=== PATIENT | female | born 1955 | race Caucasian/White ===

== ENCOUNTER 2018-01-11 14:05 | Inpatient (IN) | payer SELFPAY ==
[2018-01-11] VITALS (8 sets, daily range): BP systolic 170–200; BP diastolic 88–102; PULSE 56–73; RESP 17–20; TEMP 98–98.7; O2SAT 95–98
[~2018-01-11] VITALS: Ht 152.4 cm; Wt 80.0 kg
--- NOTE | 2018-01-11 14:26 | PD ---
HPI Chief Complaint: Fall Time Seen by Provider: 14:16 Travel History International Travel<30 days: No Contact w/Intl Traveler<30days: No Traveled to known affect area: No History of Present Illness HPI Patient is a 62-year-old female presents emergency department after an apparent syncopal episode. Patient states she went to get the mail and then she noticed that her right hand was cramping and she thought it was just from the cane that she uses to walk. The next thing she knew she woke up on the ground with somebody poking her in the chest trying to wake her up. EMS reported that this person was actually a casting house worker who had been called by security that was passing by in her neighborhood. They had to sternal rub her to arouse her. The patient states that she is only having pain in her low back. Denies any chest pain shortness of breath abdominal pain nausea vomiting. She is unsure as to whether or not she blacked out. Symptoms are moderate, started just prior to arrival, associated signs symptoms in context as above PFSH Past Medical History Musculoskeletal: Yes Tetanus Vaccination: < 5 Years ?: Not Tubal Ligation: Yes Social History Alcohol Use: No Tobacco Use: Yes Substance Use: No Allergies-Medications (Allergen,Severity, Reaction): Coded Allergies: No Known Allergies (Unverified , 01/11/18) Reported Meds & Prescriptions Reported Meds & Active Scripts Active No Active Prescriptions or Reported Medications Review of Systems Except as stated in HPI: all other systems reviewed are Neg Physical Exam Narrative GENERAL: Well-developed well-nourished, no obvious distress. Small abrasion on the forehead. Small abrasion on lower extremity SKIN: Focused skin assessment warm/dry. HEAD: Atraumatic. Normocephalic. EYES: Pupils equal and round. No scleral icterus. No injection or drainage. ENT: No nasal bleeding or discharge. Mucous membranes pink and moist. NECK: Trachea midline. No JVD. CARDIOVASCULAR: Regular rate and rhythm. No murmur appreciated. RESPIRATORY: No accessory muscle use. Clear to auscultation. Breath sounds equal bilaterally. GASTROINTESTINAL: Abdomen soft, non-tender, nondistended. Hepatic and splenic margins not palpable. MUSCULOSKELETAL: No obvious deformities. No clubbing. No cyanosis. No edema. No gross deformities, 2+ bilateral pulses in all 4 extremities per NEUROLOGICAL: Awake and alert. Cranial nerves II through XII grossly intact and nonfocal, 5 out of 5 strength in all 4 extremities. PSYCHIATRIC: Appropriate mood and affect; insight and judgment normal. Data Data Last Documented VS Vital Signs Date Time Temp Pulse Resp B/P (MAP) Pulse Ox O2 Delivery O2 Flow Rate FiO2 01/11/18 17:06 59 200/92 (128) 01/11/18 14:21 18 98 01/11/18 14:16 98.7 Orders Orders Electrocardiogram (01/11/18 14:16) Complete Blood Count With Diff (01/11/18 14:16) Comprehensive Metabolic Panel (01/11/18 14:16) B-Type Natriuretic Peptide (01/11/18 14:16) Ckmb (Isoenzyme) Profile (01/11/18 14:16) Troponin I (01/11/18 14:16) Act Partial Throm Time (Ptt) (01/11/18 14:16) Prothrombin Time / Inr (Pt) (01/11/18 14:16) Urinalysis - C+S If Indicated (01/11/18 14:16) Chest, Single Ap (01/11/18 14:16) Ct Brain W/O Iv Contrast(Rout) (01/11/18 14:16) Ct Cerv Spine W/O Contrast (01/11/18 14:16) Ecg Monitoring (01/11/18 14:16) Iv Access Insert/Monitor (01/11/18 14:16) Oximetry (01/11/18 14:16) Ct Lumb Spine W/O Contrast (01/11/18 ) Pelvis, Ap Only (Routine) (01/11/18 ) Tramadol (Ultram) (01/11/18 17:30) Ondansetron Odt (Zofran Odt) (01/11/18 17:30) Clonidine (Catapres) (01/11/18 17:30) Type And Screen (01/11/18 17:55) Red Blood Cells (Rbc) (01/11/18 17:55) Blood Product Administration (01/11/18 17:55) Sodium Chlor 0.9% 250 Ml Inj (Ns 250 Ml (01/11/18 18:00) Admit Order (Ed Use Only) (01/11/18 18:36) Labs Laboratory Tests Test 01/11/18 14:30 01/11/18 14:40 01/11/18 16:40 Blood Urea Nitrogen 8 MG/DL Creatinine 0.91 MG/DL Random Glucose 94 MG/DL Total Protein 7.7 GM/DL Albumin 3.6 GM/DL Calcium Level 9.1 MG/DL Alkaline Phosphatase 78 U/L Aspartate Amino Transf (AST/SGOT) 10 U/L Alanine Aminotransferase (ALT/SGPT) 20 U/L Total Bilirubin 0.3 MG/DL Sodium Level 142 MEQ/L Potassium Level 3.8 MEQ/L Chloride Level 105 MEQ/L Carbon Dioxide Level 29.8 MEQ/L Anion Gap 7 MEQ/L Estimat Glomerular Filtration Rate 63 ML/MIN Total Creatine Kinase 66 U/L Troponin I LESS THAN 0.02 NG/ML B-Type Natriuretic Peptide 18 PG/ML Prothrombin Time 10.5 SEC Prothromb Time International Ratio 1.0 RATIO Activated Partial Thromboplast Time 27.1 SEC White Blood Count 3.6 TH/MM3 Red Blood Count 2.44 MIL/MM3 Hemoglobin 7.7 GM/DL Hematocrit 23.7 % Mean Corpuscular Volume 96.8 FL Mean Corpuscular Hemoglobin 31.4 PG Mean Corpuscular Hemoglobin Concent 32.4 % Red Cell Distribution Width 13.8 % Platelet Count 115 TH/MM3 Mean Platelet Volume 9.2 FL Neutrophils (%) (Auto) 78.3 % Lymphocytes (%) (Auto) 14.4 % Monocytes (%) (Auto) 4.8 % Eosinophils (%) (Auto) 0.7 % Basophils (%) (Auto) 1.8 % Neutrophils # (Auto) 2.8 TH/MM3 Lymphocytes # (Auto) 0.5 TH/MM3 Monocytes # (Auto) 0.2 TH/MM3 Eosinophils # (Auto) 0.0 TH/MM3 Basophils # (Auto) 0.1 TH/MM3 CBC Comment AUTO DIFF Differential Comment AUTO DIFF CONFIRMED Platelet Estimate LOW Platelet Morphology Comment NORMAL MDM Medical Decision Making Medical Screen Exam Complete: Yes Emergency Medical Condition: Yes Differential Diagnosis Syncope, anemia, palpitations, ACS, MD, electrolyte abnormality, dehydration. Narrative Course Patient was discussed with Dr. Fernando at 1700 shift change to follow-up labs and disposition appropriately. Scripts No Active Prescriptions or Reported Meds Dudley Hung MD Jan 11, 2018 14:25
--- NOTE | 2018-01-11 14:57 | RADRPT ---
EXAM DATE/TIME: 01/11/2018 14:45 [facility] COMPARISON: No previous studies available for comparison. INDICATIONS : Weakness. Syncopal episode today. MEDICAL HISTORY : None. SURGICAL HISTORY : None. ENCOUNTER: Initial ACUITY: 1 day PAIN SCORE: 5/10 LOCATION: Bilateral chest FINDINGS: A single view of the chest demonstrates the lungs to be symmetrically aerated without evidence of mas s, infiltrate or effusion. The cardiomediastinal contours are unremarkable. Osseous structures are intact. CONCLUSION: No acute disease. Fer Allen MD on January 11, 2018 at 14:55 Board Certified Radiologist. This report was verified electronically.
--- NOTE | 2018-01-11 15:04 | RADRPT ---
EXAM DATE/TIME: 01/11/2018 14:49 [facility] COMPARISON: No previous studies available for comparison. INDICATIONS : Fall, cephalgia. RADIATION DOSE: 56.35 CTDIvol (mGy) MEDICAL HISTORY : None SURGICAL HISTORY : Tubal ligation. ENCOUNTER: Initial ACUITY: 1 day PAIN SCALE: 3/10 LOCATION: Bilateral cranial TECHNIQUE: Multiple contiguous axial images were obtained of the head. Using automated exposure control and adj ustment of the mA and/or kV according to patient size, radiation dose was kept as low as reasonably a chievable to obtain optimal diagnostic quality images. DICOM format image data is available electro nically for review and comparison. FINDINGS: CEREBRUM: The ventricles are normal for age. No evidence of midline shift, mass lesion, hemorrhage or acute in farction. No extra-axial fluid collections are seen. Mild periventricular and subcortical white elier er small vessel ischemic changes are noted bilaterally. Old lacunar infarct is noted within the right armas radiata. POSTERIOR FOSSA: The cerebellum and brainstem are intact. The 4th ventricle is midline. The cerebellopontine angle i s unremarkable. EXTRACRANIAL: The visualized portion of the orbits is intact. SKULL: The calvaria is intact. No evidence of skull fracture. CONCLUSION: 1. No acute infarct, acute hemorrhage, midline shift or extra-axial fluid collections. 2. Mild periventricular and subcortical white matter small vessel ischemic changes bilaterally. 3. Old lacunar infarct within the right armas radiata. Dudley Arevalo MD on January 11, 2018 at 15:01 Board Certified Radiologist. This report was verified electronically.
[2018-01-11 15:25] LABS: ALBUMIN 3.6 GM/DL (3.4-5.0); AST (GOT) 10 U/L (15-37); BICARBONATE 29.8 MEQ/L (21.0-32.0); BLOOD UREA NITROGEN 8 MG/DL (7-18); CALCIUM 9.1 MG/DL (8.5-10.1); CHLORIDE 105 MEQ/L (98-107); CREATININE 0.91 MG/DL (0.50-1.00); GLOMERULAR FILTRATION RATE 63 ML/MIN (>89); GLUCOSE,RANDOM 94 MG/DL (74-106); SODIUM (NA) 142 MEQ/L (136-145)
[2018-01-11 15:26] LABS: PROTHROMBIN TIME - PATIENT 10.5 SEC (9.8-11.6)
[2018-01-11 15:29] LABS: ALKALINE PHOSPHATASE 78 U/L (45-117); ALT (GPT) 20 U/L (10-53); TOTAL BILIRUBIN ADULT 0.3 MG/DL (0.2-1.0); TOTAL PROTEIN 7.7 GM/DL (6.4-8.2); TROPONIN I LESS THAN 0.02 NG/ML (0.02-0.05)
--- NOTE | 2018-01-11 15:44 | RADRPT ---
EXAM DATE/TIME: 01/11/2018 14:43 [facility] COMPARISON: No previous studies available for comparison. INDICATIONS : Pelvic pain. Syncopal episode today. Patient fell. MEDICAL HISTORY : None. SURGICAL HISTORY : None. ENCOUNTER: Initial ACUITY: 1 day PAIN SCORE: 5/10 LOCATION: Pelvis. FINDINGS: No acute fracture or dislocations. Degenerative changes are noted within the lower lumbar spine. CONCLUSION: No acute fracture or dislocation. Degenerative changes involving the lower lumbar spi ne. Dudley Arevalo MD on January 11, 2018 at 15:42 Board Certified Radiologist. This report was verified electronically.
--- NOTE | 2018-01-11 16:29 | RADRPT ---
EXAM DATE/TIME: 01/11/2018 14:59 [facility] COMPARISON: No previous studies available for comparison. INDICATIONS : Fall, lower back pain. RADIATION DOSE: 32.82 CTDIvol (mGy) MEDICAL HISTORY : None SURGICAL HISTORY : Tubal ligation. ENCOUNTER: Initial ACUITY: 1 day PAIN SCALE: 6/10 LOCATION: lower back TECHNIQUE: Volumetric scanning of the lumbar spine was performed. Multiplanar reconstructions in the sagittal, coronal and oblique axial planes were performed. Using automated exposure control and adjustment of the mA and/or kV according to patient size, radiation dose was kept as low as reasonably achievable t o obtain optimal diagnostic quality images. DICOM format image data is available electronically for review and comparison. FINDINGS: Transitional anatomy is identified. There is sacralization of the fifth nonrib-bearing vertebral sokaogon ents. There is no evidence of fracture or destructive change. There is severe degenerative arthritic change with disc space narrowing at all visualized levels. Severe posterior facet arthropathy is pres ent in the lumbar spine. There are mild annular disc bulges at multiple levels. Moderate concentric c anal stenosis most significantly at what I believe is L4-5 and moderate to moderately severe foramina l stenosis at L5-S1. There is no evidence of paraspinal hematoma. CONCLUSION: No evidence of acute bony injury in the lumbar spine Fer Allen MD on January 11, 2018 at 16:21 Board Certified Radiologist. This report was verified electronically.
--- NOTE | 2018-01-11 16:51 | RADRPT ---
EXAM DATE/TIME: 01/11/2018 14:49 [facility] COMPARISON: No previous studies available for comparison. INDICATIONS : Fall, neck pain. RADIATION DOSE: 23.94 CTDIvol (mGy) MEDICAL HISTORY : None SURGICAL HISTORY : Tubal ligation. ENCOUNTER: Initial ACUITY: 1 day PAIN SCALE: 6/10 LOCATION: neck TECHNIQUE: Volumetric scanning of the cervical spine was performed. Multiplanar reconstructions in the sagittal, coronal and oblique axial planes were performed. Using automated exposure control and adjustment o f the mA and/or kV according to patient size, radiation dose was kept as low as reasonably achievable to obtain optimal diagnostic quality images. DICOM format image data is available electronically f or review and comparison. FINDINGS: Thin section axial imaging of the cervical spine was performed. Sagittal and coronal imaging demonstrate adequate alignment of the vertebral bodies. There are degene rative changes at C4/5, C5/6 and C6/7. C1/2: No acute bony abnormality identified. C2/3: The thecal space is adequate. The neural foramina are adequate. No significant abnormality is identif ied. C3/4: The thecal space is adequate. The neural foramina are adequate. No significant abnormality is identif ied. C4/5: There is a degenerated disc. There is mild loss of the ridging from the vertebral endplates. There is uncal vertebral osteophyte projecting into the lateral recess and base of the foramina on the left. The foramina on the right is adequate. There is mild facet arthritis bilaterally. C5/6: There is a degenerated disc with a small broad-based disc bulge. There is mild osteophytic ridging fr om the vertebral endplates. The residual thecal space and foramina appear adequate. C6/7: There is a degenerated disc. There is minimal osteophytic ridging. There is minimal disc bulge. The t hecal space and foramina are adequate. There is mild facet arthritis bilaterally. C7/T1: The thecal space is adequate. The neural foramina are adequate. No significant abnormality is identif ied. CONCLUSION: 1. Degenerative changes at C4/5, C5/6 and C6/7. No acute fracture or destructive lesion identified. Ki Mao MD on January 11, 2018 at 16:47 Board Certified Radiologist. This report was verified electronically.
--- NOTE | 2018-01-11 17:24 | PD ---
Physical Exam Narrative GENERAL: elderly pale female, in no acute distress presently. SKIN: Warm and dry. HEAD: Atraumatic. Normocephalic. EYES: Pupils equal and round. No scleral icterus. No injection or drainage. ENT: No nasal bleeding or discharge. Mucous membranes pink and moist. NECK: Trachea midline. No JVD. CARDIOVASCULAR: Regular rate and rhythm. RESPIRATORY: No accessory muscle use. Clear to auscultation. Breath sounds equal bilaterally. GASTROINTESTINAL: Abdomen soft, non-tender, nondistended. Hepatic and splenic margins not palpable. MUSCULOSKELETAL: Extremities without clubbing, cyanosis, or edema. No obvious deformities. NEUROLOGICAL: Awake and alert. No obvious cranial nerve deficits. Motor grossly within normal limits. Five out of 5 muscle strength in the arms and legs. Normal speech. PSYCHIATRIC: Appropriate mood and affect; insight and judgment normal. Data Data Last Documented VS Vital Signs Date Time Temp Pulse Resp B/P (MAP) Pulse Ox O2 Delivery O2 Flow Rate FiO2 01/11/18 17:06 59 200/92 (128) 01/11/18 14:21 18 98 01/11/18 14:16 98.7 Orders Orders Electrocardiogram (01/11/18 14:16) Complete Blood Count With Diff (01/11/18 14:16) Comprehensive Metabolic Panel (01/11/18 14:16) B-Type Natriuretic Peptide (01/11/18 14:16) Ckmb (Isoenzyme) Profile (01/11/18 14:16) Troponin I (01/11/18 14:16) Act Partial Throm Time (Ptt) (01/11/18 14:16) Prothrombin Time / Inr (Pt) (01/11/18 14:16) Urinalysis - C+S If Indicated (01/11/18 14:16) Chest, Single Ap (01/11/18 14:16) Ct Brain W/O Iv Contrast(Rout) (01/11/18 14:16) Ct Cerv Spine W/O Contrast (01/11/18 14:16) Ecg Monitoring (01/11/18 14:16) Iv Access Insert/Monitor (01/11/18 14:16) Oximetry (01/11/18 14:16) Ct Lumb Spine W/O Contrast (01/11/18 ) Pelvis, Ap Only (Routine) (01/11/18 ) Tramadol (Ultram) (01/11/18 17:30) Ondansetron Odt (Zofran Odt) (01/11/18 17:30) Clonidine (Catapres) (01/11/18 17:30) Type And Screen (01/11/18 17:55) Red Blood Cells (Rbc) (01/11/18 17:55) Blood Product Administration (01/11/18 17:55) Sodium Chlor 0.9% 250 Ml Inj (Ns 250 Ml (01/11/18 18:00) Labs Laboratory Tests Test 01/11/18 14:30 01/11/18 14:40 01/11/18 16:40 Blood Urea Nitrogen 8 MG/DL Creatinine 0.91 MG/DL Random Glucose 94 MG/DL Total Protein 7.7 GM/DL Albumin 3.6 GM/DL Calcium Level 9.1 MG/DL Alkaline Phosphatase 78 U/L Aspartate Amino Transf (AST/SGOT) 10 U/L Alanine Aminotransferase (ALT/SGPT) 20 U/L Total Bilirubin 0.3 MG/DL Sodium Level 142 MEQ/L Potassium Level 3.8 MEQ/L Chloride Level 105 MEQ/L Carbon Dioxide Level 29.8 MEQ/L Anion Gap 7 MEQ/L Estimat Glomerular Filtration Rate 63 ML/MIN Total Creatine Kinase 66 U/L Troponin I LESS THAN 0.02 NG/ML B-Type Natriuretic Peptide 18 PG/ML Prothrombin Time 10.5 SEC Prothromb Time International Ratio 1.0 RATIO Activated Partial Thromboplast Time 27.1 SEC White Blood Count 3.6 TH/MM3 Red Blood Count 2.44 MIL/MM3 Hemoglobin 7.7 GM/DL Hematocrit 23.7 % Mean Corpuscular Volume 96.8 FL Mean Corpuscular Hemoglobin 31.4 PG Mean Corpuscular Hemoglobin Concent 32.4 % Red Cell Distribution Width 13.8 % Platelet Count 115 TH/MM3 Mean Platelet Volume 9.2 FL Neutrophils (%) (Auto) 78.3 % Lymphocytes (%) (Auto) 14.4 % Monocytes (%) (Auto) 4.8 % Eosinophils (%) (Auto) 0.7 % Basophils (%) (Auto) 1.8 % Neutrophils # (Auto) 2.8 TH/MM3 Lymphocytes # (Auto) 0.5 TH/MM3 Monocytes # (Auto) 0.2 TH/MM3 Eosinophils # (Auto) 0.0 TH/MM3 Basophils # (Auto) 0.1 TH/MM3 CBC Comment AUTO DIFF MDM Medical Record Reviewed: Yes Supervised Visit with PATTIE: No Narrative Course cbc h/h = 7.7/24...wbc 3.6, platelet count 115 normal coagulation profile normal electrolytes, normal liver/kidney functions, negative cardiac enzymes and normal bnp ct head read as : no acute infarct/acute hemorrhage, midline shift or extra axial fluid collections...old lacunar infarct within armas radiata cervical CT: Degenerative changes at C4/5, C5/6 and C6/7. No acute fracture or destructive lesion identified. chest xray read by radiologist as: No acute disease. lumbar spine read by radiologist as : FINDINGS: Transitional anatomy is identified. There is sacralization of the fifth nonrib- bearing vertebral elements. There is no evidence of fracture or destructive change. There is severe degenerative arthritic change with disc space narrowing at all visualized levels. Severe posterior facet arthropathy is present in the lumbar spine. There are mild annular disc bulges at multiple levels. Moderate concentric canal stenosis most significantly at what I believe is L4-5 and moderate to moderately severe foraminal stenosis at L5-S1. There is no evidence of paraspinal hematoma. pelvis xray read by radiologist as : No acute fracture or dislocation. Degenerative changes involving the lower lumbar spine. Diagnosis Primary Impression: syncope Additional Impression: Symptomatic anemia Admitting Information Admitting Physician Requests: Observation Scripts No Active Prescriptions or Reported Meds Edivn Fernando MD Jan 11, 2018 17:24
[2018-01-11 17:25] LABS: AUTOMATED NEUTROPHIL # 2.8 TH/MM3 (1.8-7.7); BASOPHIL # 0.1 TH/MM3 (0-0.2); BASOPHIL % 1.8 % (0.0-2.0); EOSINOPHIL % 0.7 % (0.0-4.0); HEMATOCRIT 23.7 % (35.0-46.0); HEMOGLOBIN 7.7 GM/DL (11.6-15.3); LYMPH % 14.4 % (9.0-44.0); LYMPHOCYTE # 0.5 TH/MM3 (1.0-4.8); MEAN CELL VOLUME 96.8 FL (80.0-100.0); MEAN CORPUSCULAR HEMOGLOBIN 31.4 PG (27.0-34.0); MEAN CORPUSCULAR HGB CONC 32.4 % (32.0-36.0); MEAN PLATELET VOLUME 9.2 FL (7.0-11.0); MONO % 4.8 % (0.0-8.0); MONOCYTE # 0.2 TH/MM3 (0-0.9); NEUT % 78.3 % (16.0-70.0); PLATELET COUNT 115 TH/MM3 (150-450); RED BLOOD COUNT 2.44 MIL/MM3 (4.00-5.30); RED CELL DISTRIBUTION WIDTH 13.8 % (11.6-17.2); WHITE BLOOD COUNT 3.6 TH/MM3 (4.0-11.0)
[2018-01-11] MEDS ORDERED: ONDANSETRON ODT 4 MG TAB PO/SL ONE (17:30)
[2018-01-11] MEDS ORDERED: cloNIDine HCL 0.1 MG TAB PO ONE (17:30)
[2018-01-11] MEDS ORDERED: traMADol HCL 50 MG TAB PO ONE (17:30)
[2018-01-11] MEDS ORDERED: SODIUM CHLOR 0.9% 250 ML INJ 250 ML IV ONE (18:00)
[2018-01-11] MEDS ORDERED: NALOXONE HCL 0.4 MG/ML AMP IV PUSH PRN (18:45)
[2018-01-11] MEDS ORDERED: METOCLOPRAMIDE HCL 10 MG/2 ML VIAL IV PUSH PRN (18:45)
[2018-01-11] MEDS ORDERED: MAGNESIUM HYDROXIDE SUSP 30 ML CUP PO PRN (18:45)
[2018-01-11] MEDS ORDERED: ACETAMINOPHEN 325 MG TAB PO PRN (18:45)
[2018-01-11] MEDS ORDERED: oxyCODONE/ACETAMINOPHEN 10 MG/325 MG TAB PO PRN (18:45)
[2018-01-11] MEDS ORDERED: SODIUM CHLORIDE 0.9% FLUSH 10 ML FLUSH IV FLUSH PRN ×2 (18:45)
[2018-01-11] MEDS ORDERED: ONDANSETRON HCL 4 MG/2 ML VIAL IVP PRN (18:45)
[2018-01-11] MEDS ORDERED: oxyCODONE/ACETAMINOPHEN 5 MG/325 MG TAB PO PRN (18:45)
[2018-01-11] MEDS ORDERED: LACTULOSE SYRUP 20 GM/30 ML CUP PO PRN (18:45)
[2018-01-11] MEDS ORDERED: BISACODYL 10 MG SUPP RECTAL PRN (18:45)
[2018-01-11] MEDS ORDERED: SENNOSIDES 8.6 MG TAB PO PRN (18:45)
[2018-01-11] MEDS ORDERED: MORPHINE SULFATE 2 MG/ML INJ IV PUSH PRN ×3 (18:45)
[2018-01-11] MEDS ORDERED: ENOXAPARIN SODIUM 40 MG/0.4 ML SYRINGE SQ SCH (20:00)
[2018-01-11] MEDS: SODIUM CHLOR 0.9% 1000 ML INJ 1,000 ML IV SCH (20:00)
[2018-01-11] MEDS: DOCUSATE SODIUM 50 MG/SENNA 8.6 MG TAB PO SCH (21:00)
[2018-01-11] MEDS ORDERED: SODIUM CHLORIDE 0.9% FLUSH 10 ML FLUSH IV FLUSH SCH (21:00)
[2018-01-11] MEDS: SODIUM CHLORIDE 0.9% FLUSH 10 ML FLUSH IV FLUSH SCH (21:00)
--- NOTE | 2018-01-11 21:26 | RADRPT ---
EXAM DATE/TIME: 01/11/2018 20:07 [facility] COMPARISON: No previous studies available for comparison. INDICATIONS : Syncope. MEDICAL HISTORY : Syncope. SURGICAL HISTORY : Tubal ligation. ENCOUNTER: Initial ACUITY: 1 day PAIN SCORE: 0/10 LOCATION: Bilateral neck PEAK SYSTOLIC VELOCITIES (cm/sec): ICA/CCA RATIO: Right: 1.4 Left: 1.2 ICA: Right: 90 Left: 75 CCA: Right: 66 Left: 62 ECA: Right: 112 Left: 85 VERTEBRAL: Right: 63 antegrade Left: 56 antegrade Elevated flow velocities and ICA/CCA ratios have been found to correlate with increased degrees of vessel stenosis, calculated as percentage of diameter relative to a normal segment of distal ICA/CCA FINDINGS: RIGHT CAROTID: No significant stenosis is visualized. The waveforms are within normal limits. LEFT CAROTID: No significant stenosis is visualized. The waveforms are within normal limits. VERTEBRAL ARTERIES: Antegrade flow is seen in both vertebral arteries. MISCELLANEOUS: None. CONCLUSION: 1. Mild visible plaque in the carotid arteries bilaterally. No hemodynamically significant stenosis. Vertebral artery flow is antegrade. Francisco Cobb MD on January 11, 2018 at 21:23 Board Certified Radiologist. This report was verified electronically.
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
[2018-01-12] VITALS (15 sets, daily range): BP systolic 132–214; BP diastolic 58–102; PULSE 45–69; RESP 16–20; TEMP 97.5–98.8; O2SAT 92–97
[2018-01-12] MEDS ORDERED: ACETAMINOPHEN/CODEINE 300 MG/30 MG TAB PO PRN (00:30)
[2018-01-12] MEDS ORDERED: RESP: ALBUTEROL 2.5 MG/3 ML NEB (PRN) NEB (00:45)
[2018-01-12] MEDS ORDERED: ENALAPRILAT 2.5 MG/2 ML VIAL IV PUSH ONE (01:00)
[2018-01-12 01:30] LABS: TROPONIN I LESS THAN 0.02 NG/ML (0.02-0.05)
[2018-01-12] MEDS: SODIUM CHLOR 0.9% 1000 ML INJ 1,000 ML IV SCH ×3 (08:37→21:08)
[2018-01-12] MEDS: DOCUSATE SODIUM 50 MG/SENNA 8.6 MG TAB PO SCH ×2 (08:37→21:00)
[2018-01-12] MEDS: SODIUM CHLORIDE 0.9% FLUSH 10 ML FLUSH IV FLUSH SCH ×2 (08:37→21:07)
--- NOTE | 2018-01-12 10:49 | ECHRPT ---
Indication: HYPERTENSIVE HEART DIS CONCLUSIONS The left ventricular systolic function is normal with an estimated ejection fraction in the range of 55-60%. Doppler parameters are consistent with impaired left ventricular relaxtion (grade 1 diastolic dysfun ction). [id number] mitral valve regurgitation. There is trace tricuspid valve regurgitation. BP: 134 / 58 HR: 45 Rhythm: Sinus MEASUREMENTS (Male / Female) Normal Values Technical Quality:Fair 2D ECHO LV Diastolic Diameter PLAX 4.3 cm 4.2 - 5.9 / 3.9 - 5.3 cm LV Systolic Diameter PLAX 2.9 cm IVS Diastolic Thickness 0.9 cm 0.6 - 1.0 / 0.6 - 0.9 cm LVPW Diastolic Thickness 0.8 cm 0.6 - 1.0 / 0.6 - 0.9 cm LV Relative Wall Thickness 0.4 RV Internal Dim ED PLAX 3.2 cm LVOT Diameter 1.6 cm Aortic Root Diameter 2.4 cm LA Systolic Diameter LX 2.6 cm 3.0 - 4.0 / 2.7 - 3.8 cm M-MODE AV Cusp Separation MM 1.7 cm DOPPLER AV Peak Velocity 175.0 cm/s AV Peak Gradient 12.3 mmHg AV Mean Gradient 6.0 mmHg AV Velocity Time Integral 37.3 cm LVOT Peak Velocity 94.7 cm/s LVOT Peak Gradient 3.6 mmHg LVOT Velocity Time Integral 19.2 cm LVOT Cardiac Index 925.9 cm/minm AV Area Cont Eq vti 1.0 cm AV Area Cont Eq pk 1.1 cm Mitral E Point Velocity 71.1 cm/s Mitral A Point Velocity 97.2 cm/s Mitral E to A Ratio 0.7 LV E' Lateral Velocity 5.7 cm/s Mitral E to LV E' Lateral Ratio 12.6 LV E' Septal Velocity 6.5 cm/s Mitral E to LV E' Septal Ratio 10.9 TR Peak Velocity 314.0 cm/s TR Peak Gradient 39.4 mmHg Right Atrial Pressure 10.0 mmHg Pulmonary Artery Systolic Pressu 49.4 mmHg Right Ventricular Systolic Press 49.4 mmHg PV Peak Velocity 64.7 cm/s PV Peak Gradient 1.7 mmHg FINDINGS LEFT VENTRICLE Normal left ventricular size. Wall thickness is normal. The left ventricular systolic function is normal with an estimated ejection fraction in the range of 55-60%. Doppler parameters are consistent with impaired left ventricular relaxtion (grade 1 diastolic dysfun ction). RIGHT VENTRICLE Normal right ventricular size and systolic function. LEFT ATRIUM The left atrial size is normal. RIGHT ATRIUM The right atrial size is [id number] dilated. ATRIAL SEPTUM No atrial level shunt is demonstrated by color flow Doppler interrogation. AORTA The aortic root and proximal ascending aorta are not well visualized. MITRAL VALVE Structurally normal mitral valve. No mitral valve stenosis. Dhyfh-aj-akaa mitral valve regurgitation. AORTIC VALVE Aortic valve sclerosis is present. No aortic valve regurgitation. No aortic valve stenosis. TRICUSPID VALVE Structurally normal tricuspid valve. No tricuspid valve stenosis. There is trace tricuspid valve regurgitation. The estimated pulmonary arterial pressure is 49.4 mmHg. PULMONARY VALVE No pulmonary valve regurgitation or stenosis. VESSELS The inferior vena cava is normal in size. PERICARDIUM No pericardial effusion. Earl Mckeon DO (Electronically Signed) Final Date:12 January 2018 10:48
[2018-01-12 10:57] LABS: AUTOMATED NEUTROPHIL # 4.7 TH/MM3 (1.8-7.7); BASOPHIL # 0.1 TH/MM3 (0-0.2); BASOPHIL % 0.8 % (0.0-2.0); EOSINOPHIL # 0.1 TH/MM3 (0-0.4); EOSINOPHIL % 1.8 % (0.0-4.0); HEMATOCRIT 44.7 % (35.0-46.0); HEMOGLOBIN 15.4 GM/DL (11.6-15.3); LYMPH % 21.6 % (9.0-44.0); LYMPHOCYTE # 1.5 TH/MM3 (1.0-4.8); MEAN CORPUSCULAR HEMOGLOBIN 30.6 PG (27.0-34.0); MEAN CORPUSCULAR HGB CONC 34.3 % (32.0-36.0); MEAN PLATELET VOLUME 9.2 FL (7.0-11.0); MONO % 6.3 % (0.0-8.0); MONOCYTE # 0.4 TH/MM3 (0-0.9); NEUT % 69.5 % (16.0-70.0); PLATELET COUNT 231 TH/MM3 (150-450); RED BLOOD COUNT 5.02 MIL/MM3 (4.00-5.30); RED CELL DISTRIBUTION WIDTH 14.5 % (11.6-17.2); WHITE BLOOD COUNT 6.7 TH/MM3 (4.0-11.0)
[2018-01-12 11:26] LABS: ALBUMIN 3.4 GM/DL (3.4-5.0); AST (GOT) 11 U/L (15-37); BLOOD UREA NITROGEN 11 MG/DL (7-18); CALCIUM 9.1 MG/DL (8.5-10.1); CHLORIDE 104 MEQ/L (98-107); CREATININE 0.84 MG/DL (0.50-1.00); GLOMERULAR FILTRATION RATE 69 ML/MIN (>89); GLUCOSE,RANDOM 90 MG/DL (74-106); SODIUM (NA) 139 MEQ/L (136-145)
[2018-01-12 11:27] LABS: ALT (GPT) 18 U/L (10-53)
[2018-01-12 11:47] LABS: ALKALINE PHOSPHATASE 71 U/L (45-117); FREE T4 1.41 NG/DL (0.76-1.46); PHOSPHORUS 4.3 MG/DL (2.5-4.9); TOTAL BILIRUBIN ADULT 0.8 MG/DL (0.2-1.0); TOTAL PROTEIN 7.4 GM/DL (6.4-8.2); TROPONIN I LESS THAN 0.02 NG/ML (0.02-0.05)
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
[2018-01-12 14:04] LABS: AUTOMATED NEUTROPHIL # 6.3 TH/MM3 (1.8-7.7); BASOPHIL # 0.1 TH/MM3 (0-0.2); BASOPHIL % 0.9 % (0.0-2.0); EOSINOPHIL # 0.1 TH/MM3 (0-0.4); EOSINOPHIL % 1.1 % (0.0-4.0); HEMATOCRIT 45.1 % (35.0-46.0); HEMOGLOBIN 15.5 GM/DL (11.6-15.3); LYMPH % 16.2 % (9.0-44.0); LYMPHOCYTE # 1.3 TH/MM3 (1.0-4.8); MEAN CELL VOLUME 88.7 FL (80.0-100.0); MEAN CORPUSCULAR HEMOGLOBIN 30.6 PG (27.0-34.0); MEAN CORPUSCULAR HGB CONC 34.4 % (32.0-36.0); MEAN PLATELET VOLUME 8.9 FL (7.0-11.0); MONO % 6.5 % (0.0-8.0); MONOCYTE # 0.5 TH/MM3 (0-0.9); NEUT % 75.3 % (16.0-70.0); PLATELET COUNT 266 TH/MM3 (150-450); RED BLOOD COUNT 5.09 MIL/MM3 (4.00-5.30); RED CELL DISTRIBUTION WIDTH 14.4 % (11.6-17.2); WHITE BLOOD COUNT 8.3 TH/MM3 (4.0-11.0)
[2018-01-12 14:26] LABS: IRON (FE) 93 MCG/DL (50-170); TOTAL IRON BINDING CAPACITY 332 MCG/DL (250-450)
[2018-01-12 14:29] LABS: FERRITIN 105 NG/ML (8-252)
[2018-01-12 14:40] LABS: FOLATE 8.4 NG/ML (3.1-17.5)
--- NOTE | 2018-01-12 16:37 | HHI.PR ---
Subjective Remarks Pt was seen earlier today around lunch time Pt at the time told me that she felt tired. 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 is taking care of, using her inhaler for her SOB Objective Vitals Vital Signs Date Time Temp Pulse Resp B/P (MAP) Pulse Ox O2 Delivery O2 Flow Rate FiO2 01/12/18 15:52 98.8 59 20 178/84 (115) 92 181/95 (123) 178/92 (120) 01/12/18 13:38 98.4 60 20 171/81 (111) 93 162/84 (110) 181/82 (115) 01/12/18 08:48 98.4 55 20 169/79 (109) 93 165/74 (104) 192/84 (120) 01/12/18 08:33 98.5 50 16 136/60 (85) 93 01/12/18 08:26 98.5 50 16 134/60 93 01/12/18 07:12 45 01/12/18 05:36 98.3 48 16 134/58 97 01/12/18 05:11 97.5 53 16 132/61 96 01/12/18 04:23 51 01/12/18 04:15 98.2 60 19 138/63 (88) 93 152/84 (106) 196/86 (122) 01/12/18 02:23 98.1 55 18 156/77 96 01/12/18 02:07 98.1 53 16 185/79 96 01/12/18 00:43 98.7 54 17 181/83 (115) 92 175/82 (113) 192/90 (124) 01/11/18 22:35 98.5 56 17 197/102 (133) 96 01/11/18 19:40 20 01/11/18 19:38 98.0 73 20 170/88 (115) 97 Nasal Cannula 2.00 01/11/18 19:30 95 Nasal Cannula 2.00 01/11/18 18:53 95 Nasal Cannula 01/11/18 18:44 62 18 185/93 (123) 95 Nasal Cannula 2.00 01/11/18 17:06 59 200/92 (128) I/O 01/11/18 01/11/18 01/11/18 01/12/18 01/12/18 01/12/18 07:00 15:00 23:00 07:00 15:00 23:00 Intake Total 400 ml 400 ml Balance 400 ml 400 ml Intake Packed Cells 400 ml 400 ml Result Diagram: 01/12/18 1350 01/12/18 0955 Imaging Last Impressions Head CT 01/11/18 1416 Signed Impressions: Service Date/Time: December 14:49 - CONCLUSION: 1. No acute infarct, acute hemorrhage, midline shift or extra-axial fluid collections. 2. Mild periventricular and subcortical white matter small vessel ischemic changes bilaterally. 3. Old lacunar infarct within the right armas radiata. Dudley Arevalo MD Chest X-Ray 01/11/18 1416 Signed Impressions: Service Date/Time: December 14:45 - CONCLUSION: No acute disease. Fer Allen MD Cervical Spine CT 01/11/186 Signed Impressions: Service Date/Time: December 14:49 - CONCLUSION: 1. Degenerative changes at C4/5, C5/6 and C6/7. No acute fracture or destructive lesion identified. Ki Mao MD Pelvis X-Ray 01/11/18 0000 Signed Impressions: Service Date/Time: December 14:43 - CONCLUSION: No acute fracture or dislocation. Degenerative changes involving the lower lumbar spine. Dudley Arevalo MD Lumbar Spine CT 01/11/18 0000 Signed Impressions: Service Date/Time: December 14:59 - CONCLUSION: No evidence of acute bony injury in the lumbar spine Fer Allen MD Carotid Artery Ultrasound 01/11/18 0000 Signed Impressions: Service Date/Time: December 20:07 - CONCLUSION: 1. Mild visible plaque in the carotid arteries bilaterally. No hemodynamically significant stenosis. Vertebral artery flow is antegrade. Francisco Cobb MD Objective Remarks Constitutional: This is a pale, obese elderly female patient, calm, appears comfortable CARDIOVASCULAR: Regular rate and rhythm without murmurs RESPIRATORY: No rales or rhonchi. End expiratory wheezing noted throughout lung mccray. GASTROINTESTINAL: Abdomen soft, non-tender, nondistended. No guarding. MUSCULOSKELETAL: Extremities without edema or calf tenderness NEUROLOGICAL: Awake and alert. Motor and sensory grossly within normal limits. Normal speech. A/P Problem List: (1) Syncope and collapse ICD Code: R55 - Syncope and collapse (2) Anemia ICD Code: D64.9 - Anemia, unspecified (3) Asthma ICD Code: J45.909 - Unspecified asthma, uncomplicated Assessment and Plan Ms. Becerra is a 62 y/o female with a history of chronic back pain from degenerative disc disease with sciatica, asthma, and carpal tunnel syndrome who presented to the emergency room on 01/11/2018 following a syncopal episode with collapse while at a bus stop. Syncope with collapse - Continuous cardiac telemetry. Head CT with no acute infarct, hemorrhage, midline shift, or extra-axial fluid collection. Serial cardiac enzymes neg - Thyroid function tests wnl - Carotid artery ultrasound w mild plaque - Echocardiogram w EF 55-60% and grade 1 diastolic dysfunction - Both cardiology and neurology were consulted. - EEG pending - Physical therapy to evaluate and treat -appreciate recommendations Poorly controlled asthma - Chest x-ray negative for acute disease - duonebs q6h scheduled and Albuterol nebs every 4 hours as needed - Patient will need inhaler upon discharge - Consult case management as patient has no health insurance -she needs a primary care physician and an asthma inhaler (minimally) Chronic back pain - Pelvis x-ray reveals degenerative changes of the lower spine - Lumbar CT shows severe posterior facet arthropathy present in lumbar spine with mild annular disc bulges at multiple levels and moderate concentric canal stenosis most prominent at L4-5 and moderate to moderately severe foraminal stenosis at L5-S1. No acute bony injury in the lumbar spine was noted. - CT cervical spine with degenerative disc disease noted - continue pain control. Pancytopenia of uncertain etiology - myelodysplasia is a consideration vs gi bleed Symptomatic anemia - WBC low at 3.6, RBC low at 2.44, hemoglobin low at 7.7, hematocrit low at 23.7 , platelet count low at 115,000. s/p 2 units PRBC - Check stool for occult blood - Hematology has already been consulted. - Repeat CBC today showed WBC 6.7. hb 15.4, Plts 231 DVT prophylaxis - SCDs/TEDs. monitor Hb and if stable, start heparin or lovenox Problem Qualifiers (1) Anemia: Qualified Codes: D64.9 - Anemia, unspecified Vielka Walter MD Jan 12, 2018 16:37
--- NOTE | 2018-01-12 18:01 | MG ---
cc: Jennifer Reeves MD DATE OF EE01/12/2018 REQUESTING PHYSICIAN: Dr. Everett. INDICATION: An EEG was obtained on this 62-year-old patient being evaluated for possible seizures. DESCRIPTION: There is background of some 10-12 per second alpha rhythms posteriorly. There are beta rhythms diffusely and there is mild amount of occasional theta activity. Later on, there is obvious sleep stage II ,sleep spindles and expressive amount of beta activity is noted. There are some K complexes as well. Photic stimulation showed some bilateral driving response. INTERPRETATION: Probably normal awake and asleep electroencephalogram. Jennifer Reeves MD OFC/KD , 05:51 PM , 06:00 PM
[2018-01-12 19:31] LABS: HEMOGLOBIN A1C 5.8 % (4.3-6.0)
--- NOTE | 2018-01-12 19:52 | MB ---
cc: Srinivas Monahan MD DATE: 01/12/2018 REASON FOR CONSULTATION: Transient pancytopenia. Ms. Becerra reports "I feel tired because I did not sleep last night." She reports being brought into [facility] after she passed out at a bus stop. PATIENT PROFILE: Ms. Becerra is a 62-year-old female. She is . 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 Recently, the client was transferred to a [facility] facility; therefore, the patient had to move out. It sounds like Ms. Becerra had no place to go and it sounds like she may have been close to being homeless. She reports having a son with her, who has recently began working for a [employer]. She reports smoking occasionally. HISTORY OF PRESENT ILLNESS: Mr. Becerra is a 62-year-old lady. She has a history of asthma, morbid obesity, degenerative joint disease and osteoarthritis. She denies any previous history of anemia or other blood disorders. She does not regularly followup with a primary care physician and does not recall when her last blood tests were done under routine circumstances. The patient was brought into [facility] by EMS after she passed out at a bus stop. The patient reports feeling unwell that day with difficulty breathing and wheezing. She reports having had a cough. She was waiting for the bus to come when she got up to throw something in the trash can; when she got up, she felt numbness travel from her waist down her legs bilaterally, she felt her arm cramp and then she went down. She was awoken by the EMS personnel was brought into [facility]. Upon initial presentation, the patient was noted to have hypertension, she was initiated on oxygen supplementation and blood work was performed. CBC drawn at 4:40 p.m. on 01/11/2018 revealed a WBC count 3.6, absolute neutrophil count of 2.8, hemoglobin of 7.7 g/dL and platelet count of 115. She was transfused 2 units of packed red blood cells and her hemoglobin increased to 15.5 g/dL, her WBC count increased to 8.3, her absolute neutrophil count increased to 6.3 and her platelet count was noted to be normal at 266. The hematology service was asked to see her for further workup and management of pancytopenia. PAST MEDICAL HISTORY: As outlined above; obesity, DJD, asthma, low blood pressure usually and osteoarthritis. PAST SURGICAL HISTORY: Carpal tunnel surgeries on her left hand, tubal ligation, tonsillectomy. FAMILY HISTORY: She was adopted. She does not know of her natural parents. SOCIAL HISTORY: As outlined above. Significant positives include tobaccoism. ALLERGIES: NAPROSYN, WHICH CAUSES ITCHING AND A RASH. CURRENT INPATIENT MEDICATIONS: 1. Normal saline 100 mL per hour. 2. Tylenol/codeine 300/30 one tablet every 4 hours as needed for pain. 3. Tylenol 650 mg p.o. every 4 hours as needed for fever. 4. DuoNebs 1 amp every 6 hours as needed for wheezing. 5. Dulcolax 10 mg rectally as needed for severe constipation. 6. Milk of magnesia 30 mL p.o. every 12 hours as needed for mild constipation. 7. Naloxone 0.4 mg IV as needed for oversedation. 8. Ondansetron 4 mg IV every 6 hours as needed for nausea. 9. Senokot as needed. REVIEW OF SYSTEMS: A 13-point patient completed review of systems was obtained, the following are the pertinent positives and negatives: CONSTITUTIONAL: The patient reports fatigue, she denies fevers, chills, night sweats, she denies weight loss. HEENT: The patient denies headaches, she denies sores in the throat, she does report sinus congestion. RESPIRATORY: She reports cough, wheezing, difficulty breathing with minimal exertion. CARDIOVASCULAR: She denies anginal chest pain, PND or orthopnea. She denies previous history of arrhythmia. GENITOURINARY: No complaints of dysuria, hematuria, or urine incontinence. GASTROINTESTINAL: Denies abdominal pain, distention, she denies hematochezia or melena (specifically). CENTRAL NERVOUS SYSTEMS: Denies any focal or motor deficits. No other complaints reported. PHYSICAL EXAMINATION: VITAL SIGNS: Temperature 98.8 degrees Fahrenheit, heart rate ranging between 45 and 50 beats per minute, respiratory rate 20, blood pressure 178/84, O2 saturations 92% on 2 liters nasal cannula. GENERAL PHYSICAL APPEARANCE: Ms. Becerra is a middle-aged lady, she is short and heavyset, she appears to be in no acute distress and has a pleasant disposition. HEENT: Head is atraumatic, normocephalic. Conjunctivae are not pale. Sclerae are anicteric, EOMI, PERRLA. Oral exam: No pharyngeal erythema. NECK: No cervical lymphadenopathy. No supraclavicular lymphadenopathy. RESPIRATORY: She has bilateral inspiratory and expiratory wheezing diffusely heard over all lung zones on the right and the left side. CARDIOVASCULAR: Borderline bradycardia. S1, S2. No obvious murmurs, rubs or gallops. ABDOMEN: Protuberant, obese belly, no obvious organ enlargement, the examination was limited by her obese body habitus. EXTREMITIES: No pretibial edema, no calf tenderness. CENTRAL NERVOUS SYSTEMS: No focal sensory or motor deficits. SKIN: Reveals no bruising. LABORATORY DATA: Blood work dated 01/11/2018 at 4:40 p.m.: WBC count 3.6, hemoglobin 7.7 g/dL, hematocrit 23.7%, platelet count 115, absolute neutrophil count 2.8. Blood work performed on 01/12/2018 at 1:50 p.m. reveals WBC count of 8.3, hemoglobin 15.5 g/dL, hematocrit 45%, platelet count 266, absolute neutrophil count is 6.3. Chemistries dated 01/12/2018: Sodium 139, potassium 3.9, chloride 104, bicarbonate is 27, BUN is 11, creatinine 0.84, EGFR is 69 mL per minute, calcium 9.1, phosphorus is 4.3, magnesium 2. Serum iron studies: Iron level 93, TIBC 332, percent iron saturation 28%, ferritin level is 105 (all normal). Liver function testing: Total bilirubin 0.8, AST 11, ALT 18, alkaline phosphatase 71. Albumin is 3.4, vitamin D level was low at 12.3, folic acid level 8.4, free T4 level was 1.4, TSH third generation is 2.1. Coags: PT 10.5, INR 1, PTT 27.1. RADIOGRAPH STUDIES: Cervical spine CT scan dated 01/11/2018 reveals degenerative changes at C4-C5, C5-C6 and C6-C7. No acute fractures identified. CT scan of the head dated 01/11/2018 indicates no acute infarct, acute hemorrhage, midline shift or extraaxial fluid collections. Mild periventricular and subcortical white matter, small vessel ischemic changes are noted bilaterally. Old lacunar infarct within the right armas radiata. ASSESSMENT AND PLAN: Ms. Becerra is a 62-year-old female who was brought into the hospital after she had an apparent syncopal episode at a bus stop. She tells me she had been "out in the sun a lot" and had been experiencing chest congestion and difficulty breathing. She reports having a history of asthma and is not on current treatment. It appears the patient had recently had to move out of her residence and did not clearly have a place to go to after leaving her former place of residence. Though she does not admit it, I suspect she may have been homeless. After having the syncopal episode at the bus stop, EMS brought her to [place] where she was resuscitated. She has been noted to have bradycardia and is currently undergoing cardiac workup. The hematology service has been asked to see her because initial blood tests revealed pancytopenia. She was transfused 2 units of packed red blood cells. Subsequent blood work revealed a supratherapeutic response to the 2 units packed red blood cells delivered and normalization of the white blood cell count and platelet counts. It is my assessment that the patient's initial CBC was perhaps diluted and did not accurately reflect her actual counts. There is no explanation for the normalization of her white blood cells and platelet counts and there is no other explanation for this supratherapeutic response to 2 units of packed red blood cells, which would ordinarily increase a hemoglobin by 1-1.5 grams per unit transfused, depending on individual's body weight. Because there was an increase of approximately 7 g/dL after 2 units, I would suspect the patient's actual hemoglobin prior to transfusion was closer to 12 or 13 g/dL. It is my opinion that the initial hemoglobin, hematocrit, WBC count and platelet counts were spurious. I do not recommend additional workup from a hematologic standpoint. I would rather recommend monitoring her and treating her supportively. The oncology service will follow along at a distance. MD JUANJO Mitchell/RADHA , 06:18 PM , 07:50 PM
--- NOTE | 2018-01-12 19:54 | RADRPT ---
EXAM DATE/TIME: 01/12/2018 18:52 [place] COMPARISON: No previous studies available for comparison. INDICATIONS : Shortness of breath with a syncopal episode. DOSE: 8.8 mCi Tc99m MAA IV 0.49 mCi Tc99m DTPA aerosol MEDICAL HISTORY : None SURGICAL HISTORY : Tubal ligation. ENCOUNTER: Initial ACUITY: 1 day PAIN SCALE: 0/10 LOCATION: chest TECHNIQUE: Following five minutes of tidal breathing of DTPA aerosol, planar images of the lungs were performed in eight projections. The patient was then injected with MAA, and eight-view perfusion scan was perf ormed. FINDINGS: There is a somewhat heterogeneous pattern of aerosol delivery to the periphery of both lungs. No foc al ventilatory defects are seen. The perfusion lung scan demonstrates a homogenous pattern of uptake in both lungs. No segmental or s ubsegmental defects are seen. CONCLUSION: 1. Low probability for pulmonary embolus. Francisco Cobb MD on January 12, 2018 at 19:51 Board Certified Radiologist. This report was verified electronically.
--- NOTE | 2018-01-12 19:55 | EKG ---
Date Performed: 01/11/2018 Time Performed: 14:18:45 PTAGE: 62 years EKG: Sinus rhythm NORMAL ECG NO PREVIOUS TRACING DOCTOR: Miguel Ruiz Interpretating Date/Time 01/12/2018 19:52:42
--- NOTE | 2018-01-12 19:55 | EKG ---
Date Performed: 01/12/2018 Time Performed: 04:12:49 PTAGE: 62 years EKG: SINUS BRADYCARDIA NONSPECIFIC T-WAVE ABNORMALITY Since previous tracing, no significant daniel nge noted BORDERLINE ECG PREVIOUS TRACING : 01/11/2018 14.18 DOCTOR: Miguel Ruiz Interpretating Date/Time 01/12/2018 19:52:52
--- NOTE | 2018-01-12 20:05 | MB ---
cc: Miguel Ruiz MD, Arthur W MD DATE: 01/12/2018 HISTORY OF PRESENT ILLNESS: Ann is a very pleasant 62-year-old lady who had a syncopal event with no prodrome. Currently, she is awake, alert, in no acute distress. She denies chest pain, fever, chills, cough, GI or bleeding, PND, orthopnea, syncope, or dizziness. Per the ER notes, it is noted that she had cramping in the right hand that she uses to walk with a cane. PAST MEDICAL HISTORY: As per history of present illness. SOCIAL HISTORY: She does smoke. Denies alcohol use. ALLERGIES: NONE. MEDICATIONS PRIOR TO ADMISSION: None. MEDICATIONS IN THE HOSPITAL: Albuterol. PHYSICAL EXAMINATION: VITAL SIGNS: Blood pressure 178/54, pulse 59, temperature 98.8, respiratory rate 20. Note - pulses range between 45 and 73 since admission. Sats are 92% on room air. GENERAL: She is alert and oriented x3, in no acute distress. NECK: Supple. No JVD. No bruit. CARDIOVASCULAR: S1, S2. No murmurs, rubs or gallops. LUNGS: Clear to auscultation bilaterally. ABDOMEN: Soft, nontender, nondistended with positive bowel sounds. EXTREMITIES: No lower extremity edema. IMAGING STUDIES: Chest x-ray shows no acute disease. Pelvic x-ray: No acute fracture or dislocations. Degenerative changes are noted within the lower lumbar spine. Lumbar CT: No evidence of acute bony injury in the lumbar spine. Carotid ultrasound: Mild visible plaque in the carotid arteries bilaterally. Head CT: No acute infarct, acute hemorrhage, midline shift or extraaxial fluid collections. Mild periventricular and subcortical white matter small vessel ischemic changes bilaterally. Old lacunar infarct within the right armas radiata. Cervical spine CT: Degenerative changes of C4-C5, C5-C6, C6-C7. CARDIOLOGY STUDIES EKG: Normal sinus rhythm at 63 beats per minute, otherwise normal. Repeat EKG: Sinus bradycardia at 51 beats per minute. Nonspecific ST-T wave changes. Echocardiogram: EF 55% to 60%. Grade 1 diastolic dysfunction, trace to mild MR, trace TR, PA pressure of 49 mmHg. LABORATORY DATA: White count is 3.6, hemoglobin 7.7, hematocrit 115. Repeat blood work this morning - white count 8.3, hemoglobin 15.5, hematocrit 45.1, platelet count 266. Sodium 139, potassium 3.9, chloride 104, bicarbonate 27.0, BUN 11, creatinine 0.84. Troponin is less than 0.02 x2. TSH is 2.14, INR 1.0. DIAGNOSES: 1. Syncope with no prodrome. 2. Sinus bradycardia. 3. Carotid stenosis. 4. Neutropenia. 5. Anemia. 6. Prior cerebrovascular accident. 7. Pulmonary hypertension. DISCUSSION: At this point in time, I would definitely consider PE and/or sinus bradycardia as a possible etiology to her syncope. She has a high pulmonary artery pressure. She also has bradycardia with no AV inga blockade or hypothyroidism. We will get an EP consult with Dr. Corrigan and also recommend CTA of the chest to rule out PE. Continue telemetry monitoring. Continue neurologic workup. MD RAHAT Coffey//tj , 05:23 PM , 07:18 PM
[2018-01-12] MEDS ORDERED: diphenhydrAMINE HCL 50 MG CAP PO PRN (20:15)
[2018-01-12] MEDS: RESP: ALBUTEROL 2.5 MG/IPRATROPIUM 0.5 MG NEB (SCH) NEB (20:23)
[2018-01-12] MEDS: ENOXAPARIN SODIUM 40 MG/0.4 ML SYRINGE SQ SCH (21:06)
[2018-01-12] MEDS: ENALAPRILAT 1.25 MG/ML VIAL IV PUSH PRN (21:06)
[2018-01-13] VITALS (12 sets, daily range): BP systolic 141–208; BP diastolic 67–105; PULSE 53–73; RESP 18–20; TEMP 97.9–98.3; O2SAT 92–99
[2018-01-13] MEDS ORDERED: NIFEdipine 30 MG SUSTAINED RELEASE TAB PO ONE (00:45)
[2018-01-13] MEDS: RESP: ALBUTEROL 2.5 MG/IPRATROPIUM 0.5 MG NEB (SCH) NEB ×4 (03:19→21:03)
[2018-01-13] MEDS: ENALAPRILAT 1.25 MG/ML VIAL IV PUSH PRN (04:55)
[2018-01-13] MEDS: SODIUM CHLOR 0.9% 1000 ML INJ 1,000 ML IV SCH ×2 (04:56→20:38)
[2018-01-13 06:25] LABS: BILIRUBIN, URINE NEG (NEG); BLOOD, URINE NEG (NEG); GLUCOSE,URINE NEG (NEG); KETONE, URINE NEG (NEG); NITRITE,URINE NEG (NEG); PH, URINE 5.5 (5.0-8.5); SQUAMOUS EPITHELIAL CELL URINE 1 /hpf (0-5); URINE COLOR LIGHT-YELLOW (YELLW/STRAW); URINE LEUKOCYTE ESTERASE TRACE (NEG)
[2018-01-13 07:55] LABS: AUTOMATED NEUTROPHIL # 4.4 TH/MM3 (1.8-7.7); BASOPHIL # 0.1 TH/MM3 (0-0.2); BASOPHIL % 0.7 % (0.0-2.0); EOSINOPHIL # 0.2 TH/MM3 (0-0.4); EOSINOPHIL % 2.8 % (0.0-4.0); HEMATOCRIT 44.2 % (35.0-46.0); HEMOGLOBIN 15.1 GM/DL (11.6-15.3); LYMPH % 28.7 % (9.0-44.0); LYMPHOCYTE # 2.1 TH/MM3 (1.0-4.8); MEAN CELL VOLUME 89.4 FL (80.0-100.0); MEAN CORPUSCULAR HEMOGLOBIN 30.6 PG (27.0-34.0); MEAN CORPUSCULAR HGB CONC 34.2 % (32.0-36.0); MEAN PLATELET VOLUME 9.2 FL (7.0-11.0); MONO % 8.1 % (0.0-8.0); MONOCYTE # 0.6 TH/MM3 (0-0.9); NEUT % 59.7 % (16.0-70.0); PLATELET COUNT 240 TH/MM3 (150-450); RED BLOOD COUNT 4.94 MIL/MM3 (4.00-5.30); RED CELL DISTRIBUTION WIDTH 14.6 % (11.6-17.2); WHITE BLOOD COUNT 7.3 TH/MM3 (4.0-11.0)
[2018-01-13 08:22] LABS: ALBUMIN 3.1 GM/DL (3.4-5.0); BICARBONATE 27.4 MEQ/L (21.0-32.0); CALCIUM 8.5 MG/DL (8.5-10.1); CREATININE 0.82 MG/DL (0.50-1.00); DIRECT BILIRUBIN ADULT 0.1 MG/DL (0.0-0.2)
[2018-01-13 08:25] LABS: CHOLESTEROL/ HDL RATIO 4.05 RATIO; HDL CHOLESTEROL 47.1 MG/DL (40.0-60.0); INDIRECT BILIRUBIN 0.3 MG/DL (0.0-0.8); TOTAL BILIRUBIN ADULT 0.4 MG/DL (0.2-1.0)
[2018-01-13] MEDS: DOCUSATE SODIUM 50 MG/SENNA 8.6 MG TAB PO SCH ×2 (08:37→20:31)
[2018-01-13] MEDS: LISINOPRIL 20 MG TAB PO SCH (08:47)
[2018-01-13] MEDS: SODIUM CHLORIDE 0.9% FLUSH 10 ML FLUSH IV FLUSH SCH ×2 (08:52→20:32)
[2018-01-13] MEDS ORDERED: amLODIPine BESYLATE 5 MG TAB PO ONE (10:00)
--- NOTE | 2018-01-13 10:23 | HHI.PR ---
Subjective Remarks Chronic episodes of dizziness reported by the patient. Syncopal episode may be related to hypertensive urgency. Monitoring for bradycardia and plan assessment with Dr. Corrigan is pending. Patient was ruled out for pulmonary amylase and. She has no new complaints today. Blood pressures are still not controlled. Objective Vital Signs Date Time Temp Pulse Resp B/P (MAP) Pulse Ox O2 Delivery O2 Flow Rate FiO2 01/13/18 08:00 98.1 56 20 175/77 (109) 94 01/13/18 06:13 60 181/84 (116) 01/13/18 04:12 56 01/13/18 03:25 98.1 53 18 191/83 (119) 99 01/13/18 00:00 98.2 58 18 183/83 (116) 95 208/93 (131) 207/105 (139) 01/13/18 00:00 55 01/12/18 20:29 93 01/12/18 20:00 97.8 64 20 208/94 (132) 95 195/93 (127) 214/102 (139) 01/12/18 20:00 69 01/12/18 15:52 98.8 59 20 178/84 (115) 92 181/95 (123) 178/92 (120) 01/12/18 13:38 98.4 60 20 171/81 (111) 93 162/84 (110) 181/82 (115) I/O 01/12/18 01/12/18 01/12/18 01/13/18 01/13/18 01/13/18 07:00 15:00 23:00 07:00 15:00 23:00 Intake Total 400 ml 400 ml 240 ml 1580 ml Balance 400 ml 400 ml 240 ml 1580 ml Intake Oral 240 ml 480 ml IV Total 1100 ml Packed Cells 400 ml 400 ml # Voids 5 3 # Bowel Movements 0 0 Result Diagram: 01/13/18 0601/13/18 06 Objective Remarks GENERAL: NAD, A&Ox3 HEAD: Normocephalic. NECK: Supple, trachea midline. No lymphadenopathy. EYES: No scleral icterus. No injection or drainage. CARDIOVASCULAR: Regular rate and rhythm without murmurs, gallops, or rubs. RESPIRATORY: Breath sounds equal bilaterally. No accessory muscle use. Crackles bilaterally at bases. GASTROINTESTINAL: Abdomen soft, non-tender, nondistended. MUSCULOSKELETAL: No cyanosis, or edema. SKIN: Warm and dry. NEURO: No focal neurological deficitis. A/P Problem List: (1) Syncope and collapse ICD Code: R55 - Syncope and collapse (2) Asthma ICD Code: J45.909 - Unspecified asthma, uncomplicated Assessment and Plan 62 y/o female admitted secondary to a syncopal episode at a bus stop. Syncope with collapse Continue telemetry monitoring Cardiology following Assessment from Dr. Corrigan pending Neurology following EEG completed, report pending Treat hypertensive urgency Hypertensive urgency Uncontrolled hypertension Continue as needed IV enalapril Start as needed by mouth clonidine Lisinopril added to baseline treatment Uncontrolled asthma Schedule duo nebs As needed albuterol No exacerbation seen today Chronic back pain Ricarda pain control Follows in outpatient Pancytopenia Resolved Was likely reactive DVT prophylaxis SCDs Bleed/Fall risk, follow H&H, no anticoagulation at this time Ki Ramirez MD Jan 13, 2018 10:23
[2018-01-13] MEDS: ACETAMINOPHEN 325 MG TAB PO PRN ×2 (10:49→20:31)
[2018-01-13] MEDS: NITROGLYCERIN 2% OINT 1 GM PACKET TOPICAL SCH ×2 (12:00→17:07)
--- NOTE | 2018-01-13 12:56 | PD.CARD.PN ---
Subjective Subjective Remarks alert in nad Objective Medications Current Medications Medications (Trade) Dose Ordered Sig/Jeff Route Start Time Stop Time Status Last Admin Sodium Chloride 1,000 ml @ 100 mls/hr Q10H IV 01/11/18 20:00 01/13/18 04:56 (Tylenol) 650 mg Q4H PRN PO 01/11/18 18:45 (Zofran Inj) 4 mg Q6H PRN IVP 01/11/18 18:45 (Reglan Inj) 5 mg Q6H PRN IV PUSH 01/11/18 18:45 (Tylenol) 650 mg Q6H PRN PO 01/11/18 18:45 01/13/18 10:49 (Narcan Inj) 0.4 mg UNSCH PRN IV PUSH 01/11/18 18:45 (Adela-Colace) 1 tab BID PO 01/11/18 21:00 (Milk Of Magnesia Liq) 30 ml Q12H PRN PO 01/11/18 18:45 (Senokot) 17.2 mg Q12H PRN PO 01/11/18 18:45 (Dulcolax Supp) 10 mg DAILY PRN RECTAL 01/11/18 18:45 (Lactulose Liq) 30 ml DAILY PRN PO 01/11/18 18:45 (NS Flush) 2 ml UNSCH PRN IV FLUSH 01/11/18 18:45 (NS Flush) 2 ml BID IV FLUSH 01/11/18 21:00 01/12/18 21:07 (Tylenol-Codeine #3) 1 tab Q4H PRN PO 01/12/18 00:30 01/12/18 00:59 (Albuterol Neb) 2.5 mg Q4HR NEB PRN NEB 01/12/18 00:45 (Duoneb Neb) 1 ampule Q6HR NEB NEB 01/12/18 22:00 01/13/18 10:51 (Benadryl) 50 mg HS PRN PO 01/12/18 20:15 (Vasotec Inj) 2.5 mg Q6H PRN IV PUSH 01/12/18 20:15 01/13/18 04:55 (Lovenox Inj) 40 mg Q24H SQ 01/12/18 21:00 01/12/18 21:06 (Catapres) 0.1 mg Q6H PRN PO 01/13/18 09:00 (Prinivil) 40 mg DAILY PO 01/13/18 09:00 01/13/18 08:47 (Norvasc) 5 mg DAILY PO 01/14/18 09:00 (Nitroglycerin 2% Oint) 2 inch Q6HR TOPICAL 01/13/18 12:00 Vital Signs / I&O Vital Signs Date Time Temp Pulse Resp B/P (MAP) Pulse Ox O2 Delivery O2 Flow Rate FiO2 01/13/18 08:00 98.1 56 20 175/77 (109) 94 01/13/18 06:13 60 181/84 (116) 01/13/18 04:12 56 01/13/18 03:25 98.1 53 18 191/83 (119) 99 01/13/18 00:00 98.2 58 18 183/83 (116) 95 208/93 (131) 207/105 (139) 01/13/18 00:00 55 01/12/18 20:29 93 01/12/18 20:00 97.8 64 20 208/94 (132) 95 195/93 (127) 214/102 (139) 01/12/18 20:00 69 01/12/18 15:52 98.8 59 20 178/84 (115) 92 181/95 (123) 178/92 (120) 01/12/18 13:38 98.4 60 20 171/81 (111) 93 162/84 (110) 181/82 (115) I/O 01/12/18 01/12/18 01/12/18 01/13/18 01/13/18 01/13/18 06:59 14:59 22:59 06:59 14:59 22:59 Intake Total 400 ml 400 ml 240 ml 1580 ml Balance 400 ml 400 ml 240 ml 1580 ml Intake Oral 240 ml 480 ml IV Total 1100 ml Packed Cells 400 ml 400 ml # Voids 5 3 # Bowel Movements 0 0 Physical Exam GENERAL: SKIN: Warm and dry. HEAD: Normocephalic. EYES: No scleral icterus. No injection or drainage. NECK: Supple, trachea midline. No JVD or lymphadenopathy. CARDIOVASCULAR: Regular rate and rhythm without murmurs, gallops, or rubs. RESPIRATORY: Breath sounds equal bilaterally. No accessory muscle use. GASTROINTESTINAL: Abdomen soft, non-tender, nondistended. MUSCULOSKELETAL: No cyanosis, or edema. BACK: Nontender without obvious deformity. No CVA tenderness. Laboratory Laboratory Tests Test 01/12/18 13:50 01/13/18 06:04 01/13/18 06:06 White Blood Count 8.3 TH/MM3 7.3 TH/MM3 Red Blood Count 5.09 MIL/MM3 4.94 MIL/MM3 Hemoglobin 15.5 GM/DL 15.1 GM/DL Hematocrit 45.1 % 44.2 % Mean Corpuscular Volume 88.7 FL 89.4 FL Mean Corpuscular Hemoglobin 30.6 PG 30.6 PG Mean Corpuscular Hemoglobin Concent 34.4 % 34.2 % Red Cell Distribution Width 14.4 % 14.6 % Platelet Count 266 TH/MM3 240 TH/MM3 Mean Platelet Volume 8.9 FL 9.2 FL Neutrophils (%) (Auto) 75.3 % 59.7 % Lymphocytes (%) (Auto) 16.2 % 28.7 % Monocytes (%) (Auto) 6.5 % 8.1 % Eosinophils (%) (Auto) 1.1 % 2.8 % Basophils (%) (Auto) 0.9 % 0.7 % Neutrophils # (Auto) 6.3 TH/MM3 4.4 TH/MM3 Lymphocytes # (Auto) 1.3 TH/MM3 2.1 TH/MM3 Monocytes # (Auto) 0.5 TH/MM3 0.6 TH/MM3 Eosinophils # (Auto) 0.1 TH/MM3 0.2 TH/MM3 Basophils # (Auto) 0.1 TH/MM3 0.1 TH/MM3 CBC Comment DIFF FINAL DIFF FINAL Differential Comment Iron Level 93 MCG/DL Total Iron Binding Capacity 332 MCG/DL Percent Iron Saturation 28.0 % Ferritin 105 NG/ML 25-Hydroxy Vitamin D Total 12.3 ng/ML Folate 8.4 NG/ML Urine Color LIGHT-YELLOW Urine Turbidity CLEAR Urine pH 5.5 Urine Specific [place] 1.006 Urine Protein NEG mg/dL Urine Glucose (UA) NEG mg/dL Urine Ketones NEG mg/dL Urine Occult Blood NEG Urine Nitrite NEG Urine Bilirubin NEG Urine Urobilinogen LESS THAN 2.0 MG/DL Urine Leukocyte Esterase TRACE Urine WBC 1 /hpf Urine Squamous Epithelial Cells 1 /hpf Microscopic Urinalysis Comment CULT NOT INDICATED Blood Urea Nitrogen 12 MG/DL Creatinine 0.82 MG/DL Random Glucose 86 MG/DL Total Protein 7.0 GM/DL Albumin 3.1 GM/DL Calcium Level 8.5 MG/DL Alkaline Phosphatase 72 U/L Aspartate Amino Transf (AST/SGOT) 14 U/L Alanine Aminotransferase (ALT/SGPT) 21 U/L Total Bilirubin 0.4 MG/DL Direct Bilirubin 0.1 MG/DL Sodium Level 143 MEQ/L Potassium Level 3.6 MEQ/L Chloride Level 108 MEQ/L Carbon Dioxide Level 27.4 MEQ/L Anion Gap 8 MEQ/L Estimat Glomerular Filtration Rate 71 ML/MIN Indirect Bilirubin 0.3 MG/DL Total Creatine Kinase 78 U/L Triglycerides Level 135 MG/DL Cholesterol Level 191 MG/DL LDL Cholesterol 117 MG/DL HDL Cholesterol 47.1 MG/DL Cholesterol/HDL Ratio 4.05 RATIO Assessment and Plan Problem List: (1) Pulmonary arterial hypertension ICD Codes: I27.21 - Secondary pulmonary arterial hypertension (2) HTN (hypertension) ICD Codes: I10 - Essential (primary) hypertension (3) Bradycardia ICD Codes: R00.1 - Bradycardia, unspecified (4) Carotid stenosis ICD Codes: I65.29 - Occlusion and stenosis of unspecified carotid artery (5) Anemia ICD Codes: D64.9 - Anemia, unspecified (6) Syncope and collapse ICD Codes: R55 - Syncope and collapse (7) Asthma ICD Codes: J45.909 - Unspecified asthma, uncomplicated Assessment and Plan 1.) Syncope - DRSeide to see 01/15/18 for further evaluation of bradycardia, f/u neurology eval 2.) HTN - add ntp and norvasc 3.) Carotid stenosis - mild, continue aspirin 81 mg qd, f/u lipids/lfts/cpk 4.) Pulmonary hypertension - moderate, v/q low probability; suspect secondary to htn and asthma Problem Qualifiers (1) Anemia: Qualified Codes: D64.9 - Anemia, unspecified Miguel Ruiz MD Jan 13, 2018 12:56
[2018-01-13] MEDS ORDERED: ASPIRIN EC 81 MG TABEC PO ONE (13:30)
[2018-01-13] MEDS ORDERED: ATORVASTATIN 20 MG TAB PO ONE (13:30)
[2018-01-13] MEDS: cloNIDine HCL 0.1 MG TAB PO PRN (17:07)
[2018-01-13] MEDS: ENOXAPARIN SODIUM 40 MG/0.4 ML SYRINGE SQ SCH (20:32)
[2018-01-14] VITALS (12 sets, daily range): BP systolic 144–196; BP diastolic 67–90; PULSE 53–69; RESP 16–20; TEMP 97.1–98.3; O2SAT 91–99
[2018-01-14] MEDS: NITROGLYCERIN 2% OINT 1 GM PACKET TOPICAL SCH ×2 (00:06→05:40)
[2018-01-14] MEDS: RESP: ALBUTEROL 2.5 MG/IPRATROPIUM 0.5 MG NEB (SCH) NEB ×4 (03:09→21:09)
[2018-01-14 07:11] LABS: AUTOMATED NEUTROPHIL # 3.6 TH/MM3 (1.8-7.7); BASOPHIL # 0.1 TH/MM3 (0-0.2); EOSINOPHIL # 0.2 TH/MM3 (0-0.4); EOSINOPHIL % 3.3 % (0.0-4.0); HEMATOCRIT 40.1 % (35.0-46.0); HEMOGLOBIN 13.4 GM/DL (11.6-15.3); LYMPH % 30.8 % (9.0-44.0); MEAN CELL VOLUME 89.4 FL (80.0-100.0); MEAN CORPUSCULAR HGB CONC 33.5 % (32.0-36.0); MEAN PLATELET VOLUME 9.4 FL (7.0-11.0); MONO % 7.9 % (0.0-8.0); MONOCYTE # 0.5 TH/MM3 (0-0.9); PLATELET COUNT 204 TH/MM3 (150-450); RED BLOOD COUNT 4.48 MIL/MM3 (4.00-5.30); RED CELL DISTRIBUTION WIDTH 13.9 % (11.6-17.2); WHITE BLOOD COUNT 6.4 TH/MM3 (4.0-11.0)
[2018-01-14 07:38] LABS: AST (GOT) 22 U/L (15-37); BICARBONATE 26.8 MEQ/L (21.0-32.0); BLOOD UREA NITROGEN 13 MG/DL (7-18); CALCIUM 8.6 MG/DL (8.5-10.1); CHLORIDE 107 MEQ/L (98-107); CREATININE 0.87 MG/DL (0.50-1.00); GLOMERULAR FILTRATION RATE 66 ML/MIN (>89); GLUCOSE,RANDOM 95 MG/DL (74-106); SODIUM (NA) 142 MEQ/L (136-145)
[2018-01-14 07:39] LABS: ALT (GPT) 24 U/L (10-53)
[2018-01-14 07:41] LABS: ALKALINE PHOSPHATASE 63 U/L (45-117); TOTAL BILIRUBIN ADULT 0.2 MG/DL (0.2-1.0); TOTAL PROTEIN 6.3 GM/DL (6.4-8.2)
[2018-01-14] MEDS: SODIUM CHLOR 0.9% 1000 ML INJ 1,000 ML IV SCH ×2 (08:00→17:01)
[2018-01-14] MEDS ORDERED: amLODIPine BESYLATE 5 MG TAB PO SCH (09:00)
[2018-01-14] MEDS: ASPIRIN EC 81 MG TABEC PO SCH (09:04)
[2018-01-14] MEDS: DOCUSATE SODIUM 50 MG/SENNA 8.6 MG TAB PO SCH ×2 (09:04→21:25)
[2018-01-14] MEDS: SODIUM CHLORIDE 0.9% FLUSH 10 ML FLUSH IV FLUSH SCH ×2 (09:05→21:24)
[2018-01-14] MEDS: LISINOPRIL 20 MG TAB PO SCH (09:05)
--- NOTE | 2018-01-14 10:18 | HHI.PR ---
Subjective Remarks Blood pressures are improving thus far. Currently patient is being treated with lisinopril and amlodipine. Nitroglycerin as giving the patient's symptoms at this point, headache. No other complaints this morning. Awaiting input from Dr. Corrigan, tomorrow. Objective Vital Signs Date Time Temp Pulse Resp B/P (MAP) Pulse Ox O2 Delivery O2 Flow Rate FiO2 01/14/18 09:17 99 21 01/14/18 08:00 97.9 60 20 146/67 (93) 95 01/14/18 07:46 Room Air 01/14/18 07:26 57 01/14/18 04:00 63 01/14/18 03:10 98.3 60 18 159/73 (101) 95 01/14/18 00:45 97.1 53 18 144/72 (96) 95 01/14/18 00:15 60 01/13/18 21:30 98.1 62 18 165/82 (109) 95 01/13/18 20:00 66 01/13/18 18:50 141/67 (91) 01/13/18 16:00 97.9 73 20 185/89 (121) 94 01/13/18 12:00 98.3 60 20 161/77 (105) 92 01/13/18 11:49 19 01/13/18 10:50 92 21 I/O 01/13/18 01/13/18 01/13/18 01/14/18 01/14/18 01/14/18 07:00 15:00 23:00 07:00 15:00 23:00 Intake Total 1580 ml 600 ml 1200 ml Balance 1580 ml 600 ml 1200 ml Intake Oral 480 ml 600 ml 1200 ml IV Total 1100 ml # Voids 3 3 5 # Bowel Movements 0 0 0 Result Diagram: 01/14/18 0532 01/14/18 0532 Objective Remarks GENERAL: NAD, A&Ox3 HEAD: Normocephalic. NECK: Supple, trachea midline. No lymphadenopathy. EYES: No scleral icterus. No injection or drainage. CARDIOVASCULAR: Regular rate and rhythm without murmurs, gallops, or rubs. RESPIRATORY: Breath sounds equal bilaterally. No accessory muscle use. Crackles bilaterally at bases. GASTROINTESTINAL: Abdomen soft, non-tender, nondistended. MUSCULOSKELETAL: No cyanosis, or edema. SKIN: Warm and dry. NEURO: No focal neurological deficitis. A/P Problem List: (1) Syncope and collapse ICD Code: R55 - Syncope and collapse (2) Asthma ICD Code: J45.909 - Unspecified asthma, uncomplicated Assessment and Plan 62 y/o female admitted secondary to a syncopal episode [place] bus [place]. Syncope with collapse Continue telemetry monitoring Cardiology following Assessment from Dr. Corrigan pending Neurology following EEG completed, results normal. Continue to treat hypertensive urgency Hypertensive urgency Uncontrolled hypertension Continue as needed IV enalapril Continue as needed by mouth clonidine Continue lisinopril Continue amlodipine Blood pressures improving Wean off of nitroglycerin patch and approximate control on by mouth treatments at this point, which patient will ultimately be discharged with. Uncontrolled asthma Schedule duo nebs As needed albuterol No exacerbation seen today Chronic back pain Continue pain control Follows in outpatient Pancytopenia Resolved Was likely reactive DVT prophylaxis SCDs Bleed/Fall risk, follow H&H, no anticoagulation at this time Ki Ramirez MD Jan 14, 2018 10:17
[2018-01-14] MEDS ORDERED: MAGNESIUM OXIDE 400 MG TAB PO ONE (11:00)
[2018-01-14] MEDS: cloNIDine HCL 0.1 MG TAB PO PRN ×2 (12:18→18:17)
--- NOTE | 2018-01-14 16:02 | PD.CARD.PN ---
Subjective Subjective Remarks alert in nad Objective Medications Current Medications Medications (Trade) Dose Ordered Sig/Jeff Route Start Time Stop Time Status Last Admin Sodium Chloride 1,000 ml @ 100 mls/hr Q10H IV 01/11/18 20:00 01/13/18 04:56 (Tylenol) 650 mg Q4H PRN PO 01/11/18 18:45 (Zofran Inj) 4 mg Q6H PRN IVP 01/11/18 18:45 (Reglan Inj) 5 mg Q6H PRN IV PUSH 01/11/18 18:45 (Tylenol) 650 mg Q6H PRN PO 01/11/18 18:45 01/13/18 20:31 (Narcan Inj) 0.4 mg UNSCH PRN IV PUSH 01/11/18 18:45 (Adela-Colace) 1 tab BID PO 01/11/18 21:00 01/14/18 09:04 (Milk Of Magnesia Liq) 30 ml Q12H PRN PO 01/11/18 18:45 (Senokot) 17.2 mg Q12H PRN PO 01/11/18 18:45 (Dulcolax Supp) 10 mg DAILY PRN RECTAL 01/11/18 18:45 (Lactulose Liq) 30 ml DAILY PRN PO 01/11/18 18:45 (NS Flush) 2 ml UNSCH PRN IV FLUSH 01/11/18 18:45 (NS Flush) 2 ml BID IV FLUSH 01/11/18 21:00 01/14/18 09:05 (Tylenol-Codeine #3) 1 tab Q4H PRN PO 01/12/18 00:30 01/12/18 00:59 (Albuterol Neb) 2.5 mg Q4HR NEB PRN NEB 01/12/18 00:45 (Duoneb Neb) 1 ampule Q6HR NEB NEB 01/12/18 22:00 01/14/18 09:15 (Benadryl) 50 mg HS PRN PO 01/12/18 20:15 (Vasotec Inj) 2.5 mg Q6H PRN IV PUSH 01/12/18 20:15 01/13/18 04:55 (Lovenox Inj) 40 mg Q24H SQ 01/12/18 21:00 01/13/18 20:32 (Catapres) 0.1 mg Q6H PRN PO 01/13/18 09:00 01/14/18 12:18 (Prinivil) 40 mg DAILY PO 01/13/18 09:00 01/14/18 09:05 (Ecotrin Ec) 81 mg DAILY PO 01/14/18 09:00 01/14/18 09:04 (Lipitor) 20 mg HS PO 01/14/18 21:00 (Norvasc) 10 mg DAILY PO 01/14/18 09:00 01/14/18 09:05 (Mag-Ox) 400 mg DAILY@1100 PO 01/15/18 11:00 Vital Signs / I&O Vital Signs Date Time Temp Pulse Resp B/P (MAP) Pulse Ox O2 Delivery O2 Flow Rate FiO2 01/14/18 12:00 97.8 69 20 186/80 (115) 94 01/14/18 09:17 99 21 01/14/18 08:00 97.9 60 20 146/67 (93) 95 01/14/18 07:46 Room Air 01/14/18 07:26 57 01/14/18 04:00 63 01/14/18 03:10 98.3 60 18 159/73 (101) 95 01/14/18 00:45 97.1 53 18 144/72 (96) 95 01/14/18 00:15 60 01/13/18 21:30 98.1 62 18 165/82 (109) 95 01/13/18 20:00 66 01/13/18 18:50 141/67 (91) I/O 01/13/18 01/13/18 01/13/18 01/14/18 01/14/18 01/14/18 07:00 15:00 23:00 07:00 15:00 23:00 Intake Total 1580 ml 600 ml 1200 ml Balance 1580 ml 600 ml 1200 ml Intake Oral 480 ml 600 ml 1200 ml IV Total 1100 ml # Voids 3 3 5 # Bowel Movements 0 0 0 Physical Exam GENERAL: SKIN: Warm and dry. HEAD: Normocephalic. EYES: No scleral icterus. No injection or drainage. NECK: Supple, trachea midline. No JVD or lymphadenopathy. CARDIOVASCULAR: Regular rate and rhythm without murmurs, gallops, or rubs. RESPIRATORY: Breath sounds equal bilaterally. No accessory muscle use. GASTROINTESTINAL: Abdomen soft, non-tender, nondistended. MUSCULOSKELETAL: No cyanosis, or edema. BACK: Nontender without obvious deformity. No CVA tenderness. Laboratory Laboratory Tests Test 01/14/18 05:32 White Blood Count 6.4 TH/MM3 Red Blood Count 4.48 MIL/MM3 Hemoglobin 13.4 GM/DL Hematocrit 40.1 % Mean Corpuscular Volume 89.4 FL Mean Corpuscular Hemoglobin 30.0 PG Mean Corpuscular Hemoglobin Concent 33.5 % Red Cell Distribution Width 13.9 % Platelet Count 204 TH/MM3 Mean Platelet Volume 9.4 FL Neutrophils (%) (Auto) 57.0 % Lymphocytes (%) (Auto) 30.8 % Monocytes (%) (Auto) 7.9 % Eosinophils (%) (Auto) 3.3 % Basophils (%) (Auto) 1.0 % Neutrophils # (Auto) 3.6 TH/MM3 Lymphocytes # (Auto) 2.0 TH/MM3 Monocytes # (Auto) 0.5 TH/MM3 Eosinophils # (Auto) 0.2 TH/MM3 Basophils # (Auto) 0.1 TH/MM3 CBC Comment DIFF FINAL Differential Comment Blood Urea Nitrogen 13 MG/DL Creatinine 0.87 MG/DL Random Glucose 95 MG/DL Total Protein 6.3 GM/DL Albumin 3.0 GM/DL Calcium Level 8.6 MG/DL Alkaline Phosphatase 63 U/L Aspartate Amino Transf (AST/SGOT) 22 U/L Alanine Aminotransferase (ALT/SGPT) 24 U/L Total Bilirubin 0.2 MG/DL Sodium Level 142 MEQ/L Potassium Level 3.9 MEQ/L Chloride Level 107 MEQ/L Carbon Dioxide Level 26.8 MEQ/L Anion Gap 8 MEQ/L Estimat Glomerular Filtration Rate 66 ML/MIN Assessment and Plan Problem List: (1) Pulmonary arterial hypertension ICD Codes: I27.21 - Secondary pulmonary arterial hypertension (2) HTN (hypertension) ICD Codes: I10 - Essential (primary) hypertension (3) Bradycardia ICD Codes: R00.1 - Bradycardia, unspecified (4) Carotid stenosis ICD Codes: I65.29 - Occlusion and stenosis of unspecified carotid artery (5) Anemia ICD Codes: D64.9 - Anemia, unspecified (6) Syncope and collapse ICD Codes: R55 - Syncope and collapse (7) Asthma ICD Codes: J45.909 - Unspecified asthma, uncomplicated Assessment and Plan 1.) Syncope - DRSeide to see 01/15/18 for further evaluation of bradycardia, f/u neurology eval 2.) HTN - improved after addition of ntp and norvasc 3.) Carotid stenosis - mild, continue aspirin 81 mg qd, f/u lipids/lfts/cpk 4.) Pulmonary hypertension - moderate, v/q low probability; suspect secondary to htn and asthma Problem Qualifiers (1) Anemia: Qualified Codes: D64.9 - Anemia, unspecified Miguel Ruiz MD Jan 14, 2018 16:02
[2018-01-14] MEDS: ENOXAPARIN SODIUM 40 MG/0.4 ML SYRINGE SQ SCH (21:23)
[2018-01-14] MEDS: ATORVASTATIN 20 MG TAB PO SCH (21:24)
[2018-01-14] MEDS: ACETAMINOPHEN 325 MG TAB PO PRN (21:24)
[2018-01-14] MEDS: ENALAPRILAT 1.25 MG/ML VIAL IV PUSH PRN (21:25)
[2018-01-15] VITALS (10 sets, daily range): BP systolic 137–196; BP diastolic 61–90; PULSE 50–71; RESP 16–18; TEMP 97.3–98.1; O2SAT 93–97
[2018-01-15] MEDS: SODIUM CHLOR 0.9% 1000 ML INJ 1,000 ML IV SCH ×2 (04:00→14:00)
[2018-01-15] MEDS: RESP: ALBUTEROL 2.5 MG/IPRATROPIUM 0.5 MG NEB (SCH) NEB ×4 (04:00→21:49)
[2018-01-15] MEDS: SODIUM CHLORIDE 0.9% FLUSH 10 ML FLUSH IV FLUSH SCH ×2 (08:16→21:00)
[2018-01-15] MEDS: LISINOPRIL 20 MG TAB PO SCH (08:16)
[2018-01-15] MEDS: ASPIRIN EC 81 MG TABEC PO SCH (08:16)
[2018-01-15] MEDS: DOCUSATE SODIUM 50 MG/SENNA 8.6 MG TAB PO SCH ×2 (08:16→20:32)
[2018-01-15] MEDS: cloNIDine HCL 0.1 MG TAB PO PRN (08:16)
[2018-01-15] MEDS: ACETAMINOPHEN 325 MG TAB PO PRN (08:21)
--- NOTE | 2018-01-15 10:19 | HHI.PR ---
Subjective Remarks 01-14 Blood pressures are improving thus far. Currently patient is being treated with lisinopril and amlodipine. Nitroglycerin as giving the patient's symptoms at this point, headache. No other complaints this morning. Awaiting input from Dr. Reinoso, tomorrow. 01-[address] REINOSO TODAY OF CARDIOLOGY STATES FEELS ACHY ALL OVER LIKE SHE HAD THE FLU DW RN AND PT AND CM INCREASE ACTIVITY ADD CATAPRES FOR BLOOD PRESSURE Objective Vitals Vital Signs Date Time Temp Pulse Resp B/P (MAP) Pulse Ox O2 Delivery O2 Flow Rate FiO2 01/15/18 09:26 95 01/15/18 08:00 98.1 53 18 196/87 (123) 94 01/15/18 07:45 50 01/15/18 03:27 97.7 51 16 137/61 (86) 97 01/15/18 00:20 97.9 58 17 143/71 (95) 95 01/14/18 21:11 99 21 01/14/18 20:45 174/90 (118) 01/14/18 18:57 98.0 65 16 196/88 (124) 97 01/14/18 16:00 98.0 61 20 171/80 (110) 91 01/14/18 12:00 97.8 69 20 186/80 (115) 94 I/O 01/14/18 01/14/18 01/14/18 01/15/18 01/15/18 01/15/18 07:00 15:00 23:00 07:00 15:00 23:00 Intake Total 1200 ml 480 ml 960 ml Balance 1200 ml 480 ml 960 ml Intake Oral 1200 ml 480 ml 960 ml # Voids 5 3 5 # Bowel Movements 0 1 0 Result Diagram: 01/14/18 0532 01/14/18 0532 Other Results Laboratory Tests Test 01/12/18 13:50 01/13/18 06:04 01/13/18 06:06 01/14/18 05:32 White Blood Count 8.3 TH/MM3 7.3 TH/MM3 6.4 TH/MM3 Red Blood Count 5.09 MIL/MM3 4.94 MIL/MM3 4.48 MIL/MM3 Hemoglobin 15.5 GM/DL 15.1 GM/DL 13.4 GM/DL Hematocrit 45.1 % 44.2 % 40.1 % Mean Corpuscular Volume 88.7 FL 89.4 FL 89.4 FL Mean Corpuscular Hemoglobin 30.6 PG 30.6 PG 30.0 PG Mean Corpuscular Hemoglobin Concent 34.4 % 34.2 % 33.5 % Red Cell Distribution Width 14.4 % 14.6 % 13.9 % Platelet Count 266 TH/MM3 240 TH/MM3 204 TH/MM3 Mean Platelet Volume 8.9 FL 9.2 FL 9.4 FL Neutrophils (%) (Auto) 75.3 % 59.7 % 57.0 % Lymphocytes (%) (Auto) 16.2 % 28.7 % 30.8 % Monocytes (%) (Auto) 6.5 % 8.1 % 7.9 % Eosinophils (%) (Auto) 1.1 % 2.8 % 3.3 % Basophils (%) (Auto) 0.9 % 0.7 % 1.0 % Neutrophils # (Auto) 6.3 TH/MM3 4.4 TH/MM3 3.6 TH/MM3 Lymphocytes # (Auto) 1.3 TH/MM3 2.1 TH/MM3 2.0 TH/MM3 Monocytes # (Auto) 0.5 TH/MM3 0.6 TH/MM3 0.5 TH/MM3 Eosinophils # (Auto) 0.1 TH/MM3 0.2 TH/MM3 0.2 TH/MM3 Basophils # (Auto) 0.1 TH/MM3 0.1 TH/MM3 0.1 TH/MM3 CBC Comment DIFF FINAL DIFF FINAL DIFF FINAL Differential Comment Iron Level 93 MCG/DL Total Iron Binding Capacity 332 MCG/DL Percent Iron Saturation 28.0 % Ferritin 105 NG/ML 25-Hydroxy Vitamin D Total 12.3 ng/ML Folate 8.4 NG/ML Urine Color LIGHT-YELLOW Urine Turbidity CLEAR Urine pH 5.5 Urine Specific [place] 1.006 Urine Protein NEG mg/dL Urine Glucose (UA) NEG mg/dL Urine Ketones NEG mg/dL Urine Occult Blood NEG Urine Nitrite NEG Urine Bilirubin NEG Urine Urobilinogen LESS THAN 2.0 MG/DL Urine Leukocyte Esterase TRACE Urine WBC 1 /hpf Urine Squamous Epithelial Cells 1 /hpf Microscopic Urinalysis Comment CULT NOT INDICATED Blood Urea Nitrogen 12 MG/DL 13 MG/DL Creatinine 0.82 MG/DL 0.87 MG/DL Random Glucose 86 MG/DL 95 MG/DL Total Protein 7.0 GM/DL 6.3 GM/DL Albumin 3.1 GM/DL 3.0 GM/DL Calcium Level 8.5 MG/DL 8.6 MG/DL Alkaline Phosphatase 72 U/L 63 U/L Aspartate Amino Transf (AST/SGOT) 14 U/L 22 U/L Alanine Aminotransferase (ALT/SGPT) 21 U/L 24 U/L Total Bilirubin 0.4 MG/DL 0.2 MG/DL Direct Bilirubin 0.1 MG/DL Sodium Level 143 MEQ/L 142 MEQ/L Potassium Level 3.6 MEQ/L 3.9 MEQ/L Chloride Level 108 MEQ/L 107 MEQ/L Carbon Dioxide Level 27.4 MEQ/L 26.8 MEQ/L Anion Gap 8 MEQ/L 8 MEQ/L Estimat Glomerular Filtration Rate 71 ML/MIN 66 ML/MIN Indirect Bilirubin 0.3 MG/DL Total Creatine Kinase 78 U/L Triglycerides Level 135 MG/DL Cholesterol Level 191 MG/DL LDL Cholesterol 117 MG/DL HDL Cholesterol 47.1 MG/DL Cholesterol/HDL Ratio 4.05 RATIO Imaging Last Impressions Lung Scan-V Nuclear Medicine 01/12/18 0000 Signed Impressions: Service Date/Time: Friday, January 12, 2018 18:52 - CONCLUSION: 1. Low probability for pulmonary embolus. Francisco Cobb MD Head CT 01/11/18 1416 Signed Impressions: Service Date/Time: December 14:49 - CONCLUSION: 1. No acute infarct, acute hemorrhage, midline shift or extra-axial fluid collections. 2. Mild periventricular and subcortical white matter small vessel ischemic changes bilaterally. 3. Old lacunar infarct within the right armas radiata. Dudley Arevalo MD Chest X-Ray 01/11/18 1416 Signed Impressions: Service Date/Time: December 14:45 - CONCLUSION: No acute disease. Fer Allen MD Cervical Spine CT 01/11/18 1416 Signed Impressions: Service Date/Time: December 14:49 - CONCLUSION: 1. Degenerative changes at C4/5, C5/6 and C6/7. No acute fracture or destructive lesion identified. Ki Mao MD Pelvis X-Ray 01/11/18 0000 Signed Impressions: Service Date/Time: December 14:43 - CONCLUSION: No acute fracture or dislocation. Degenerative changes involving the lower lumbar spine. Dduley Arevalo MD Lumbar Spine CT 01/11/18 0000 Signed Impressions: Service Date/Time: December 14:59 - CONCLUSION: No evidence of acute bony injury in the lumbar spine Fer Allen MD Carotid Artery Ultrasound 01/11/18 0000 Signed Impressions: Service Date/Time: December 20:07 - CONCLUSION: 1. Mild visible plaque in the carotid arteries bilaterally. No hemodynamically significant stenosis. Vertebral artery flow is antegrade. Francisco Cobb MD Objective Remarks GENERAL: Awake alert and oriented 3 talkative and cooperative appears older than stated age SKIN: Warm and dry. HEAD: Atraumatic. Normocephalic. EYES: Pupils equal and round. No scleral icterus. No injection or drainage. Extraocular muscles intact ENT: No nasal bleeding or discharge. Mucous membranes pink and moist. Oral mucosa is moist NECK: Trachea midline. No JVD. Tongue is midline CARDIOVASCULAR: Regular rate and rhythm. Bradycardia S1-S2 no S3 or S4 RESPIRATORY: No accessory muscle use. Clear to auscultation. Breath sounds equal bilaterally. GASTROINTESTINAL: Abdomen soft, non-tender, nondistended. Hepatic and splenic margins not palpable. Obese MUSCULOSKELETAL: Extremities without clubbing, cyanosis, or edema. No obvious deformities. NEUROLOGICAL: Awake and alert. No obvious cranial nerve deficits. Motor grossly within normal limits. 4 out of 5 muscle strength in the arms and legs. Normal speech. PSYCHIATRIC: Appropriate mood and affect; insight and judgment normal. Medications and IVs Current Medications Tramadol HCl (Ultram) 50 mg ONCE ONCE PO Last administered on 01/11/18 17:38 ; Start 01/11/18 at 17:30; Stop 01/11/18 at 17:31; Status DC Ondansetron HCl (Zofran Odt) 4 mg ONCE ONCE PO/SL Last administered on 17:37; Start 01/11/18 at 17:30; Stop 01/11/18 at 17:31; Status DC Clonidine (Catapres) 0.1 mg ONCE ONCE PO Last administered on 01/11/18 17:37 ; Start 01/11/18 at 17:30; Stop 01/11/18 at 17:31; Status DC Sodium Chloride 250 ml @ 15 mls/hr ONCE ONCE IV Last administered on at 22:10; Start 01/11/18 at 18:00; Stop 01/12/18 at 10:39; Status DC Sodium Chloride 1,000 ml @ 100 mls/hr Q10H IV Last administered on 01/13/18at 04:56; Start 01/11/18 at 20:00 Sodium Chloride (NS Flush) 2 ml UNSCH PRN IV FLUSH FLUSH AFTER USING IV ACCESS ; Start 01/11/18 at 18:45; Stop 01/12/18 at 00:39; Status DC Sodium Chloride (NS Flush) 2 ml BID IV FLUSH ; Start 01/11/18 at 21:00; Stop at 00:39; Status DC Acetaminophen (Tylenol) 650 mg Q4H PRN PO TEMP > 100.4; Start 01/11/18 at 18:45 Ondansetron HCl (Zofran Inj) 4 mg Q6H PRN IVP NAUSEA OR VOMITING; Start at 18:45 Metoclopramide HCl (Reglan Inj) 5 mg Q6H PRN IV PUSH NAUSEA OR VOMITING; Start 01/11/18 at 18:45 Enoxaparin Sodium (Lovenox Inj) 40 mg Q24H SQ ; Start 01/11/18 at 20:00; Stop at 23:36; Status DC Acetaminophen (Tylenol) 650 mg Q6H PRN PO PAIN SCALE 1 TO 2 Last administered on 01/15/18at 08:21; Start 01/11/18 at 18:45 Oxycodone/ Acetaminophen (Percocet 5-325 Mg) 1 tab Q6H PRN PO PAIN SCALE 3 TO 5; Start 01/11/18 at 18:45; Stop 01/12/18 at 00:30; Status DC Oxycodone/ Acetaminophen (Percocet 10-325 Mg) 1 tab Q6H PRN PO PAIN SCALE 6 TO 10; Start 01/11/18 at 18:45; Stop 01/12/18 at 00:30; Status DC Morphine Sulfate (Morphine Inj) 2 mg Q3H PRN IV PUSH Pain 3-5; if unable to take PO; Start 01/11/18 at 18:45; Stop 01/12/18 at 00:30; Status DC Morphine Sulfate (Morphine Inj) 4 mg Q3H PRN IV PUSH Pain 6-10;if unable to take PO; Start 01/11/18 at 18:45; Stop 01/12/18 at 00:30; Status DC Morphine Sulfate (Morphine Inj) 4 mg Q3H PRN IV PUSH BREAKTHROUGH PAIN; Start 01/11/18 at 18:45; Stop 01/12/18 at 00:30; Status DC Naloxone HCl (Narcan Inj) 0.4 mg UNSCH PRN IV PUSH SEE LABEL COMMENTS; Start at 18:45 Senna/Docusate Sodium (Adela-Colace) 1 tab BID PO Last administered on at 08:16; Start 01/11/18 at 21:00 Magnesium Hydroxide (Milk Of Magnesia Liq) 30 ml Q12H PRN PO Mild constipation ; Start 01/11/18 at 18:45 Sennosides (Senokot) 17.2 mg Q12H PRN PO Moderate constipation; Start 01/11/18 at 18:45 Bisacodyl (Dulcolax Supp) 10 mg DAILY PRN RECTAL SEVERE CONSITIPATION; Start at 18:45 Lactulose (Lactulose Liq) 30 ml DAILY PRN PO SEVERE CONSITIPATION; Start at 18:45 Sodium Chloride (NS Flush) 2 ml UNSCH PRN IV FLUSH FLUSH AFTER USING IV ACCESS ; Start 01/11/18 at 18:45 Sodium Chloride (NS Flush) 2 ml BID IV FLUSH Last administered on 01/14/18at 21: 24; Start 01/11/18 at 21:00 Acetaminophen/ Codeine Phosphate (Tylenol-Codeine #3) 1 tab Q4H PRN PO Pain > 3 Last administered on 01/12/18at 00:59; Start 01/12/18 at 00:30 Albuterol Sulfate (Albuterol Neb) 2.5 mg Q4HR NEB PRN NEB SOB/WHEEZING; Start 01/12/18 at 00:45 Enalaprilat (Vasotec Inj) 2.5 mg ONCE ONCE IV PUSH Last administered on at 00:57; Start 01/12/18 at 01:00; Stop 01/12/18 at 01:01; Status DC Albuterol/ Ipratropium (Duoneb Neb) 1 ampule Q6HR NEB NEB Last administered on 01/15/18at 09:25; Start 01/12/18 at 22:00 Diphenhydramine HCl (Benadryl) 50 mg HS PRN PO INSOMNIA; Start 01/12/18 at 20: 15 Enalaprilat (Vasotec Inj) 2.5 mg Q6H PRN IV PUSH SEE LABEL COMMENTS Last administered on 01/14/18at 21:25; Start 01/12/18 at 20:15 Enoxaparin Sodium (Lovenox Inj) 40 mg Q24H SQ Last administered on 01/14/18at 21 :23; Start 01/12/18 at 21:00 Nifedipine (Procardia Xl) 30 mg ONCE ONCE PO Last administered on 01/13/18at 01 :12; Start 01/13/18 at 00:45; Stop 01/13/18 at 00:46; Status DC Clonidine (Catapres) 0.1 mg Q6H PRN PO SBP>160, DBP>90 Last administered on at 08:16; Start 01/13/18 at 09:00 Lisinopril (Prinivil) 40 mg DAILY PO Last administered on 01/15/18at 08:16; Start 01/13/18 at 09:00 Amlodipine Besylate (Norvasc) 5 mg ONCE ONCE PO Last administered on at 10:49; Start 01/13/18 at 10:00; Stop 01/13/18 at 10:01; Status DC Amlodipine Besylate (Norvasc) 5 mg DAILY PO ; Start 01/14/18 at 09:00; Stop at 09:00; Status DC Nitroglycerin (Nitroglycerin 2% Oint) 2 inch Q6HR TOPICAL Last administered on 01/14/18at 05:40; Start 01/13/18 at 12:00; Stop 01/14/18 at 10:13; Status DC Aspirin (Ecotrin Ec) 81 mg ONCE ONCE PO Last administered on 01/13/18at 13:39; Start 01/13/18 at 13:30; Stop 01/13/18 at 13:31; Status DC Aspirin (Ecotrin Ec) 81 mg DAILY PO Last administered on 01/15/18at 08:16; Start 01/14/18 at 09:00 Atorvastatin Calcium (Lipitor) 20 mg ONCE ONCE PO Last administered on at 13:40; Start 01/13/18 at 13:30; Stop 01/13/18 at 13:31; Status DC Atorvastatin Calcium (Lipitor) 20 mg HS PO Last administered on 01/14/18at 21:24 ; Start 01/14/18 at 21:00 Amlodipine Besylate (Norvasc) 10 mg DAILY PO Last administered on 01/15/18at 08: 16; Start 01/14/18 at 09:00 Magnesium Oxide (Mag-Ox) 400 mg DAILY@1100 PO ; Start 01/15/18 at 11:00 Magnesium Oxide (Mag-Ox) 400 mg ONCE ONCE PO ; Start 01/14/18 at 11:00; Stop at 11:01; Status DC A/P Problem List: (1) Syncope and collapse ICD Code: R55 - Syncope and collapse (2) Anemia ICD Code: D64.9 - Anemia, unspecified (3) Asthma ICD Code: J45.909 - Unspecified asthma, uncomplicated Assessment and Plan Assessment and Plan 62 y/o female admitted secondary to [place]. Syncope with collapse Continue telemetry monitoring Cardiology following Assessment from Dr. Reinoso pending hopefully on January 15 Neurology following EEG completed, results normal. Continue to treat hypertensive urgency Hypertensive urgency Uncontrolled hypertension Continue as needed IV enalapril Continue as needed by mouth clonidine Continue lisinopril Continue amlodipine Blood pressures improving Wean off of nitroglycerin patch and approximate control on by mouth treatments at this point, which patient will ultimately be discharged with. Uncontrolled asthma Schedule duo nebs As needed albuterol No exacerbation seen today Chronic back pain Continue pain control Follows in outpatient Pancytopenia Resolved Was likely reactive DVT prophylaxis SCDs Bleed/Fall risk, follow H&H, no anticoagulation at this time Discharge Planning Pending clearance by Dr. REINOSO Problem Qualifiers (1) Anemia: Qualified Codes: D64.9 - Anemia, unspecified Tio Everett DO Jan 15, 2018 10:19
[2018-01-15] MEDS: MAGNESIUM OXIDE 400 MG TAB PO SCH (11:42)
[2018-01-15] MEDS: cloNIDine HCL 0.1 MG TAB PO SCH ×2 (14:31→20:33)
--- NOTE | 2018-01-15 15:26 | PD.CARD.PN ---
Subjective Subjective Remarks alert in nad Objective Medications Current Medications Medications (Trade) Dose Ordered Sig/Jeff Route Start Time Stop Time Status Last Admin Sodium Chloride 1,000 ml @ 100 mls/hr Q10H IV 01/11/18 20:00 01/13/18 04:56 (Tylenol) 650 mg Q4H PRN PO 01/11/18 18:45 (Zofran Inj) 4 mg Q6H PRN IVP 01/11/18 18:45 (Reglan Inj) 5 mg Q6H PRN IV PUSH 01/11/18 18:45 (Tylenol) 650 mg Q6H PRN PO 01/11/18 18:45 01/15/18 08:21 (Narcan Inj) 0.4 mg UNSCH PRN IV PUSH 01/11/18 18:45 (Adela-Colace) 1 tab BID PO 01/11/18 21:00 01/15/18 08:16 (Milk Of Magnesia Liq) 30 ml Q12H PRN PO 01/11/18 18:45 (Senokot) 17.2 mg Q12H PRN PO 01/11/18 18:45 (Dulcolax Supp) 10 mg DAILY PRN RECTAL 01/11/18 18:45 (Lactulose Liq) 30 ml DAILY PRN PO 01/11/18 18:45 (NS Flush) 2 ml UNSCH PRN IV FLUSH 01/11/18 18:45 (NS Flush) 2 ml BID IV FLUSH 01/11/18 21:00 01/14/18 21:24 (Tylenol-Codeine #3) 1 tab Q4H PRN PO 01/12/18 00:30 01/12/18 00:59 (Albuterol Neb) 2.5 mg Q4HR NEB PRN NEB 01/12/18 00:45 (Duoneb Neb) 1 ampule Q6HR NEB NEB 01/12/18 22:00 01/15/18 15:11 (Benadryl) 50 mg HS PRN PO 01/12/18 20:15 (Vasotec Inj) 2.5 mg Q6H PRN IV PUSH 01/12/18 20:15 01/14/18 21:25 (Lovenox Inj) 40 mg Q24H SQ 01/12/18 21:00 01/14/18 21:23 (Catapres) 0.1 mg Q6H PRN PO 01/13/18 09:00 01/15/18 08:16 (Prinivil) 40 mg DAILY PO 01/13/18 09:00 01/15/18 08:16 (Ecotrin Ec) 81 mg DAILY PO 01/14/18 09:00 01/15/18 08:16 (Lipitor) 20 mg HS PO 01/14/18 21:00 01/14/18 21:24 (Norvasc) 10 mg DAILY PO 01/14/18 09:00 01/15/18 08:16 (Mag-Ox) 400 mg DAILY@1100 PO 01/15/18 11:00 01/15/18 11:42 (Catapres) 0.1 mg Q8HR PO 01/15/18 14:00 01/15/18 14:31 Vital Signs / I&O Vital Signs Date Time Temp Pulse Resp B/P (MAP) Pulse Ox O2 Delivery O2 Flow Rate FiO2 01/15/18 15:11 96 21 01/15/18 12:00 97.7 52 17 156/69 (98) 95 01/15/18 09:26 95 01/15/18 08:00 98.1 53 18 196/87 (123) 94 01/15/18 07:45 50 01/15/18 03:27 97.7 51 16 137/61 (86) 97 01/15/18 00:20 97.9 58 17 143/71 (95) 95 01/14/18 21:11 99 21 01/14/18 20:45 174/90 (118) 01/14/18 18:57 98.0 65 16 196/88 (124) 97 01/14/18 16:00 98.0 61 20 171/80 (110) 91 I/O 01/14/18 01/14/18 01/14/18 01/15/18 01/15/18 01/15/18 07:00 15:00 23:00 07:00 15:00 23:00 Intake Total 1200 ml 480 ml 960 ml 600 ml Balance 1200 ml 480 ml 960 ml 600 ml Intake Oral 1200 ml 480 ml 960 ml 600 ml # Voids 5 3 5 4 # Bowel Movements 0 1 0 1 Physical Exam GENERAL: SKIN: Warm and dry. HEAD: Normocephalic. EYES: No scleral icterus. No injection or drainage. NECK: Supple, trachea midline. No JVD or lymphadenopathy. CARDIOVASCULAR: Regular rate and rhythm without murmurs, gallops, or rubs. RESPIRATORY: Breath sounds equal bilaterally. No accessory muscle use. GASTROINTESTINAL: Abdomen soft, non-tender, nondistended. MUSCULOSKELETAL: No cyanosis, or edema. BACK: Nontender without obvious deformity. No CVA tenderness. Assessment and Plan Problem List: (1) Pulmonary arterial hypertension ICD Codes: I27.21 - Secondary pulmonary arterial hypertension (2) HTN (hypertension) ICD Codes: I10 - Essential (primary) hypertension (3) Bradycardia ICD Codes: R00.1 - Bradycardia, unspecified (4) Carotid stenosis ICD Codes: I65.29 - Occlusion and stenosis of unspecified carotid artery (5) Anemia ICD Codes: D64.9 - Anemia, unspecified (6) Syncope and collapse ICD Codes: R55 - Syncope and collapse (7) Asthma ICD Codes: J45.909 - Unspecified asthma, uncomplicated Assessment and Plan 1.) Syncope - DRSeide to see 01/15/18 for further evaluation of bradycardia, f/u neurology eval 2.) HTN - improved after addition of ntp and norvasc; catapress added by Dr Everett 3.) Carotid stenosis - mild, continue aspirin 81 mg qd, f/u lipids/lfts/cpk 4.) Pulmonary hypertension - moderate, v/q low probability; suspect secondary to htn and asthma Problem Qualifiers (1) Anemia: Qualified Codes: D64.9 - Anemia, unspecified Miguel Ruiz MD Jan 15, 2018 15:26
[2018-01-15] MEDS: ENOXAPARIN SODIUM 40 MG/0.4 ML SYRINGE SQ SCH (20:32)
[2018-01-15] MEDS: ATORVASTATIN 20 MG TAB PO SCH (20:33)
[2018-01-16] VITALS (7 sets, daily range): BP systolic 150–195; BP diastolic 69–95; PULSE 57–72; RESP 16–20; TEMP 97.1–99.3; O2SAT 93–98
[2018-01-16] MEDS: RESP: ALBUTEROL 2.5 MG/IPRATROPIUM 0.5 MG NEB (SCH) NEB ×4 (03:32→21:00)
[2018-01-16] MEDS: cloNIDine HCL 0.1 MG TAB PO SCH ×3 (06:00→22:00)
--- NOTE | 2018-01-16 08:03 | PD.CARD.PN ---
Subjective Subjective Remarks No complaints. Objective Medications Current Medications Medications (Trade) Dose Ordered Sig/Jeff Route Start Time Stop Time Status Last Admin Sodium Chloride 1,000 ml @ 100 mls/hr Q10H IV 01/11/18 20:00 01/13/18 04:56 (Tylenol) 650 mg Q4H PRN PO 01/11/18 18:45 (Zofran Inj) 4 mg Q6H PRN IVP 01/11/18 18:45 (Reglan Inj) 5 mg Q6H PRN IV PUSH 01/11/18 18:45 (Tylenol) 650 mg Q6H PRN PO 01/11/18 18:45 01/15/18 08:21 (Narcan Inj) 0.4 mg UNSCH PRN IV PUSH 01/11/18 18:45 (Adela-Colace) 1 tab BID PO 01/11/18 21:00 01/15/18 20:32 (Milk Of Magnesia Liq) 30 ml Q12H PRN PO 01/11/18 18:45 (Senokot) 17.2 mg Q12H PRN PO 01/11/18 18:45 (Dulcolax Supp) 10 mg DAILY PRN RECTAL 01/11/18 18:45 (Lactulose Liq) 30 ml DAILY PRN PO 01/11/18 18:45 (NS Flush) 2 ml UNSCH PRN IV FLUSH 01/11/18 18:45 (NS Flush) 2 ml BID IV FLUSH 01/11/18 21:00 01/14/18 21:24 (Tylenol-Codeine #3) 1 tab Q4H PRN PO 01/12/18 00:30 01/12/18 00:59 (Albuterol Neb) 2.5 mg Q4HR NEB PRN NEB 01/12/18 00:45 (Duoneb Neb) 1 ampule Q6HR NEB NEB 01/12/18 22:00 01/16/18 03:32 (Benadryl) 50 mg HS PRN PO 01/12/18 20:15 (Vasotec Inj) 2.5 mg Q6H PRN IV PUSH 01/12/18 20:15 01/14/18 21:25 (Lovenox Inj) 40 mg Q24H SQ 01/12/18 21:00 01/15/18 20:32 (Catapres) 0.1 mg Q6H PRN PO 01/13/18 09:00 01/15/18 08:16 (Prinivil) 40 mg DAILY PO 01/13/18 09:00 01/15/18 08:16 (Ecotrin Ec) 81 mg DAILY PO 01/14/18 09:00 01/15/18 08:16 (Lipitor) 20 mg HS PO 01/14/18 21:00 01/15/18 20:33 (Norvasc) 10 mg DAILY PO 01/14/18 09:00 01/15/18 08:16 (Mag-Ox) 400 mg DAILY@1100 PO 01/15/18 11:00 01/15/18 11:42 (Catapres) 0.1 mg Q8HR PO 01/15/18 14:00 01/16/18 06:00 Vital Signs / I&O Vital Signs Date Time Temp Pulse Resp B/P (MAP) Pulse Ox O2 Delivery O2 Flow Rate FiO2 01/16/18 05:35 97.1 67 17 161/71 (101) 95 01/16/18 00:21 97.2 57 17 150/79 (102) 95 01/15/18 21:48 95 21 01/15/18 21:24 97.3 66 17 180/90 (120) 94 01/15/18 16:00 97.6 55 18 148/72 (97) 96 01/15/18 15:11 96 21 01/15/18 12:00 97.7 52 17 156/69 (98) 95 01/15/18 09:26 95 01/15/18 08:00 98.1 53 18 196/87 (123) 94 I/O 01/15/18 01/15/18 01/15/18 01/16/18 01/16/18 01/16/18 07:00 15:00 23:00 07:00 15:00 23:00 Intake Total 960 ml 600 ml 240 ml Balance 960 ml 600 ml 240 ml Intake Oral 960 ml 600 ml 240 ml # Voids 5 4 2 # Bowel Movements 0 1 Physical Exam GENERAL: Well-nourished, well-developed patient. SKIN: Warm and dry. HEAD: Normocephalic. EYES: No scleral icterus. No injection or drainage. NECK: Supple, trachea midline. No JVD or lymphadenopathy. CARDIOVASCULAR: Regular rate and rhythm without murmurs, gallops, or rubs. RESPIRATORY: Breath sounds equal bilaterally. No accessory muscle use. GASTROINTESTINAL: Abdomen soft, non-tender, nondistended. EXTREMITIES: No cyanosis, or edema. NEUROLOGICAL: Awake, alert, and oriented x 3. Non-focal. Laboratory Date/Time Source Procedure Growth Status 01/14/18 10:40 Stool Stool Stool Occult Blood (JOSIANE) - Final HEMOCCULT NEGATIVE Complete Imaging Last Impressions Lung Scan-VQ Nuclear Medicine 01/12/18 0000 Signed Impressions: Service Date/Time: Friday, January 12, 2018 18:52 - CONCLUSION: 1. Low probability for pulmonary embolus. Francisco Cobb MD Head CT 01/11/181415 Signed Impressions: Service Date/Time: December 14:49 - CONCLUSION: 1. No acute infarct, acute hemorrhage, midline shift or extra-axial fluid collections. 2. Mild periventricular and subcortical white matter small vessel ischemic changes bilaterally. 3. Old lacunar infarct within the right armas radiata. Dudley Arevalo MD Chest X-Ray 01/11/181415 Signed Impressions: Service Date/Time: December 14:45 - CONCLUSION: No acute disease. Fer Allen MD Cervical Spine CT 01/11/181415 Signed Impressions: Service Date/Time: December 14:49 - CONCLUSION: 1. Degenerative changes at C4/5, C5/6 and C6/7. No acute fracture or destructive lesion identified. Ki Mao MD Pelvis X-Ray 01/11/18 0000 Signed Impressions: Service Date/Time: December 14:43 - CONCLUSION: No acute fracture or dislocation. Degenerative changes involving the lower lumbar spine. Dudley Arevalo MD Lumbar Spine CT 01/11/18 0000 Signed Impressions: Service Date/Time: December 14:59 - CONCLUSION: No evidence of acute bony injury in the lumbar spine Fer Allen MD Carotid Artery Ultrasound 01/11/18 0000 Signed Impressions: Service Date/Time: December 20:07 - CONCLUSION: 1. Mild visible plaque in the carotid arteries bilaterally. No hemodynamically significant stenosis. Vertebral artery flow is antegrade. Francisco Cobb MD Assessment and Plan Problem List: (1) Syncope and collapse ICD Codes: R55 - Syncope and collapse Plan: No significant bradycardia or pauses seen. Stable this morning. No need for pacemaker at this time. Can be discharged home at the discretion of the primary team per my discussion with Dr. Corrigan. Chaparrita Kiser Jan 16, 2018 08:03
[2018-01-16] MEDS: LISINOPRIL 20 MG TAB PO SCH (08:53)
[2018-01-16] MEDS: DOCUSATE SODIUM 50 MG/SENNA 8.6 MG TAB PO SCH ×2 (08:53→21:00)
[2018-01-16] MEDS: ASPIRIN EC 81 MG TABEC PO SCH (08:54)
[2018-01-16] MEDS: SODIUM CHLORIDE 0.9% FLUSH 10 ML FLUSH IV FLUSH SCH ×2 (09:00→21:00)
[2018-01-16 09:28] LABS: AUTOMATED NEUTROPHIL # 3.9 TH/MM3 (1.8-7.7); BASOPHIL % 0.7 % (0.0-2.0); EOSINOPHIL # 0.2 TH/MM3 (0-0.4); EOSINOPHIL % 3.9 % (0.0-4.0); HEMATOCRIT 44.3 % (35.0-46.0); HEMOGLOBIN 15.1 GM/DL (11.6-15.3); LYMPH % 26.1 % (9.0-44.0); LYMPHOCYTE # 1.6 TH/MM3 (1.0-4.8); MEAN CORPUSCULAR HEMOGLOBIN 30.7 PG (27.0-34.0); MEAN CORPUSCULAR HGB CONC 34.1 % (32.0-36.0); MEAN PLATELET VOLUME 9.7 FL (7.0-11.0); MONO % 6.5 % (0.0-8.0); MONOCYTE # 0.4 TH/MM3 (0-0.9); NEUT % 62.8 % (16.0-70.0); PLATELET COUNT 225 TH/MM3 (150-450); RED BLOOD COUNT 4.92 MIL/MM3 (4.00-5.30); RED CELL DISTRIBUTION WIDTH 14.3 % (11.6-17.2); WHITE BLOOD COUNT 6.2 TH/MM3 (4.0-11.0)
[2018-01-16] MEDS ORDERED: methylPREDNISolone SOD SUCC 125 MG/2 ML VIAL IV PUSH ONE (09:30)
[2018-01-16] MEDS ORDERED: RESP: ALBUTEROL 2.5 MG/3 ML NEB (PRN) NEB (09:30)
[2018-01-16 10:04] LABS: ALBUMIN 3.6 GM/DL (3.4-5.0); ALKALINE PHOSPHATASE 91 U/L (45-117); ALT (GPT) 52 U/L (10-53); AST (GOT) 36 U/L (15-37); BICARBONATE 26.5 MEQ/L (21.0-32.0); BLOOD UREA NITROGEN 14 MG/DL (7-18); CALCIUM 9.4 MG/DL (8.5-10.1); CHLORIDE 104 MEQ/L (98-107); CREATININE 0.92 MG/DL (0.50-1.00); GLOMERULAR FILTRATION RATE 62 ML/MIN (>89); GLUCOSE,RANDOM 80 MG/DL (74-106); MAGNESIUM 2.2 MG/DL (1.5-2.5); PHOSPHORUS 3.9 MG/DL (2.5-4.9); SODIUM (NA) 139 MEQ/L (136-145); TOTAL BILIRUBIN ADULT 0.3 MG/DL (0.2-1.0); TOTAL PROTEIN 7.6 GM/DL (6.4-8.2)
--- NOTE | 2018-01-16 10:14 | MB ---
cc: Ashley Corrigan MD DATE: 01/15/2018 REASON FOR CONSULTATION: Syncopal episode. HISTORY OF PRESENT ILLNESS: Ms. Becerra is a 62-year-old female with morbid obesity. In addition to that, high blood pressure. She was at a bus stop. She began to feel her left side numb and, subsequently, her legs were weak and, the next thing she realized, she was on the floor and had passed out. Evac was called and the patient was carefully brought to the emergency room for evaluation and management. The patient was seen by Dr. Ruiz. I was consulted for further management. The chart was reviewed. The patient was evaluated. ALLERGIES: NONE REPORTED. SOCIAL HISTORY: The patient denies smoking and drinking. FAMILY HISTORY: Noncontributory to her current medical condition. MEDICATIONS: She is on Tylenol III. She is on DuoNeb. She is on Norvasc 10 mg a day. She is on aspirin. She is on Lipitor 20 mg a day. She is on clonidine p.r.n. She is on Benadryl p.r.n. She is on Lovenox 40 subcutaneously q24 hours. She is on lisinopril 40 mg a day. She is on magnesium. REVIEW OF SYSTEMS: Currently, she feels no chest pain, no chest discomfort, feeling better. No vomiting. No fever. PHYSICAL EXAMINATION: GENERAL: Alert, fully oriented. VITAL SIGNS: Blood pressure 148/72, pulse 55, respiratory rate 18. LUNGS: Good air entry bilaterally. CARDIOVASCULAR: S1, S2. No gallop. No murmur. ABDOMEN: Obese. No mass. No bruits. EXTREMITIES: No edema. ELECTROCARDIOGRAM: Shows sinus rhythm, . No acute ST- and T-wave changes. LABORATORIES: Hemoglobin is 13.4, white blood cells 6.4, potassium 3.9, creatinine 142. Total cholesterol 191, HDL 47, LDL 117. ASSESSMENT AND RECOMMENDATIONS: Ms. Becerra is currently stable. No abnormalities seen during the monitoring in the hospital. She refers she had weakness in both legs, then passed out and found herself on the floor. The son reported no seizure. She has a history of sciatica. She normally uses a quad cane to move around. This time, she just decided to use a normal cane. There is no indication of any arrhythmia. She is being evaluated by a neurologist. At this point, my recommendation is to continue observation. If there is any significant arrhythmia on monitoring, further decision will be taken. If the patient is cleared by Neurology, at that point, loop recorder can be considered. For now, the goal is to control the blood pressure. Continue current management. I would monitor her during hospitalization. MD JUAN FRANCISCO Junior/NICA , 11:47 PM , 12:32 AM
[2018-01-16] MEDS: MAGNESIUM OXIDE 400 MG TAB PO SCH (10:49)
[2018-01-16] MEDS: cloNIDine HCL 0.1 MG TAB PO PRN (11:53)
[2018-01-16] MEDS ORDERED: LORazepam 0.5 MG TAB PO ONE (12:15)
[2018-01-16] MEDS ORDERED: VENTAER INH (14:36)
[2018-01-16] MEDS ORDERED: PRED20 PO (14:36)
[2018-01-16] MEDS ORDERED: CLON.1 PO (14:36)
[2018-01-16] MEDS ORDERED: AMLO10 PO (14:36)
[2018-01-16] MEDS ORDERED: ECASA81 PO (14:38)
[2018-01-16] MEDS ORDERED: ATOR20TA15 PO (14:38)
[2018-01-16] MEDS ORDERED: LISI20TA PO (15:25)
--- NOTE | 2018-01-16 15:27 | HHI.DCPOC ---
Discharge Care Plan Diagnosis: (1) Acute asthma exacerbation (2) HTN (hypertension) (3) Bradycardia (4) Syncope and collapse (5) Old lacunar stroke without late effect Goals to Promote Your Health * To prevent worsening of your condition and complications * To maintain your health at the optimal level Directions to Meet Your Goals Take your medications as prescribed Follow your dietary instruction Follow activity as directed Keep your appointments as scheduled Take your immunizations and boosters as scheduled If your symptoms worsen call your PCP, if no PCP go to Urgent Care Center or Emergency Room Smoking is Dangerous to Your Health. Avoid second hand smoke Call the 24-hour hour crisis hotline for domestic abuse at Emmett Cerda MD Jan 16, 2018 15:27
[2018-01-16] MEDS ORDERED: ENALAPRILAT 1.25 MG/ML VIAL IV PUSH ONE (15:30)
[2018-01-16] MEDS ORDERED: hydrALAZINE HCL 25 MG TAB PO ONE (15:30)
[2018-01-16] MEDS ORDERED: MAGN400T2 PO (15:31)
[2018-01-16] MEDS ORDERED: GABA300C5 PO (15:33)
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
[2018-01-16] MEDS ORDERED: cloNIDine HCL 0.1 MG TAB PO ONE (15:45)
[2018-01-16] MEDS: ENOXAPARIN SODIUM 40 MG/0.4 ML SYRINGE SQ SCH (21:00)
[2018-01-16] MEDS: methylPREDNISolone SOD SUCC 125 MG/2 ML VIAL IV PUSH SCH (21:00)
[2018-01-16] MEDS: ATORVASTATIN 20 MG TAB PO SCH (21:00)
--- NOTE | 2018-01-16 23:57 | PD.CARD.PN ---
Subjective Subjective Remarks alert in nad Objective Medications Current Medications Medications (Trade) Dose Ordered Sig/Jeff Route Start Time Stop Time Status Last Admin (Tylenol) 650 mg Q4H PRN PO 01/11/18 18:45 (Zofran Inj) 4 mg Q6H PRN IVP 01/11/18 18:45 (Reglan Inj) 5 mg Q6H PRN IV PUSH 01/11/18 18:45 (Tylenol) 650 mg Q6H PRN PO 01/11/18 18:45 01/15/18 08:21 (Narcan Inj) 0.4 mg UNSCH PRN IV PUSH 01/11/18 18:45 (Adela-Colace) 1 tab BID PO 01/11/18 21:00 01/16/18 08:53 (Milk Of Magnesia Liq) 30 ml Q12H PRN PO 01/11/18 18:45 (Senokot) 17.2 mg Q12H PRN PO 01/11/18 18:45 (Dulcolax Supp) 10 mg DAILY PRN RECTAL 01/11/18 18:45 (Lactulose Liq) 30 ml DAILY PRN PO 01/11/18 18:45 (NS Flush) 2 ml UNSCH PRN IV FLUSH 01/11/18 18:45 (NS Flush) 2 ml BID IV FLUSH 01/11/18 21:00 01/14/18 21:24 (Tylenol-Codeine #3) 1 tab Q4H PRN PO 01/12/18 00:30 01/12/18 00:59 (Benadryl) 50 mg HS PRN PO 01/12/18 20:15 (Lovenox Inj) 40 mg Q24H SQ 01/12/18 21:00 01/15/18 20:32 (Catapres) 0.1 mg Q6H PRN PO 01/13/18 09:00 01/16/18 11:53 (Prinivil) 40 mg DAILY PO 01/13/18 09:00 01/16/18 08:53 (Ecotrin Ec) 81 mg DAILY PO 01/14/18 09:00 01/16/18 08:54 (Lipitor) 20 mg HS PO 01/14/18 21:00 01/15/18 20:33 (Norvasc) 10 mg DAILY PO 01/14/18 09:00 01/16/18 08:53 (Mag-Ox) 400 mg DAILY@1100 PO 01/15/18 11:00 01/16/18 10:49 (Catapres) 0.1 mg Q8HR PO 01/15/18 14:00 01/16/18 06:00 (SoluMEDROL INJ) 60 mg Q12HR IV PUSH 01/16/18 21:00 (Albuterol Neb) 2.5 mg Q2HR NEB PRN NEB 01/16/18 09:30 Vital Signs / I&O Vital Signs Date Time Temp Pulse Resp B/P (MAP) Pulse Ox O2 Delivery O2 Flow Rate FiO2 01/16/18 20:00 97.5 72 20 182/82 (115) 94 01/16/18 16:00 99.3 63 18 182/89 (120) 95 01/16/18 12:00 97.8 58 18 160/69 (99) 98 01/16/18 09:17 95 21 01/16/18 08:00 98.0 58 16 195/95 (128) 93 01/16/18 05:35 97.1 67 17 161/71 (101) 95 01/16/18 00:21 97.2 57 17 150/79 (102) 95 I/O 01/16/18 01/16/18 01/16/18 01/17/18 01/17/18 01/17/18 07:00 15:00 23:00 07:00 15:00 23:00 Intake Total 240 ml 1530 ml Balance 240 ml 1530 ml Intake Oral 240 ml 1530 ml # Voids 2 4 # Bowel Movements 1 Physical Exam GENERAL: SKIN: Warm and dry. HEAD: Normocephalic. EYES: No scleral icterus. No injection or drainage. NECK: Supple, trachea midline. No JVD or lymphadenopathy. CARDIOVASCULAR: Regular rate and rhythm without murmurs, gallops, or rubs. RESPIRATORY: Breath sounds equal bilaterally. No accessory muscle use. GASTROINTESTINAL: Abdomen soft, non-tender, nondistended. MUSCULOSKELETAL: No cyanosis, or edema. BACK: Nontender without obvious deformity. No CVA tenderness. Laboratory Laboratory Tests Test 01/16/18 08:00 White Blood Count 6.2 TH/MM3 Red Blood Count 4.92 MIL/MM3 Hemoglobin 15.1 GM/DL Hematocrit 44.3 % Mean Corpuscular Volume 90.0 FL Mean Corpuscular Hemoglobin 30.7 PG Mean Corpuscular Hemoglobin Concent 34.1 % Red Cell Distribution Width 14.3 % Platelet Count 225 TH/MM3 Mean Platelet Volume 9.7 FL Neutrophils (%) (Auto) 62.8 % Lymphocytes (%) (Auto) 26.1 % Monocytes (%) (Auto) 6.5 % Eosinophils (%) (Auto) 3.9 % Basophils (%) (Auto) 0.7 % Neutrophils # (Auto) 3.9 TH/MM3 Lymphocytes # (Auto) 1.6 TH/MM3 Monocytes # (Auto) 0.4 TH/MM3 Eosinophils # (Auto) 0.2 TH/MM3 Basophils # (Auto) 0.0 TH/MM3 CBC Comment DIFF FINAL Differential Comment Blood Urea Nitrogen 14 MG/DL Creatinine 0.92 MG/DL Random Glucose 80 MG/DL Total Protein 7.6 GM/DL Albumin 3.6 GM/DL Calcium Level 9.4 MG/DL Phosphorus Level 3.9 MG/DL Magnesium Level 2.2 MG/DL Alkaline Phosphatase 91 U/L Aspartate Amino Transf (AST/SGOT) 36 U/L Alanine Aminotransferase (ALT/SGPT) 52 U/L Total Bilirubin 0.3 MG/DL Sodium Level 139 MEQ/L Potassium Level 3.8 MEQ/L Chloride Level 104 MEQ/L Carbon Dioxide Level 26.5 MEQ/L Anion Gap 9 MEQ/L Estimat Glomerular Filtration Rate 62 ML/MIN Assessment and Plan Problem List: (1) Syncope and collapse ICD Codes: R55 - Syncope and collapse Assessment and Plan 1.) Syncope - DRSeide to see 01/15/18 for further evaluation of bradycardia, f/u neurology eval 2.) HTN - worse, consider adding diuretic or minoxidil, continue ntp and norvasc; catapress added by Dr Everett 3.) Carotid stenosis - mild, continue aspirin 81 mg qd, f/u lipids/lfts/cpk 4.) Pulmonary hypertension - moderate, v/q low probability; suspect secondary to htn and asthma Miguel Ruiz MD Jan 16, 2018 23:57
[2018-01-17] VITALS: BP 168/77; PULSE 64; RESP 20; TEMP 97.1; O2SAT 94
[2018-01-17] MEDS ORDERED: SPIRONOLACTONE 25 MG TAB PO ONE (00:15)
[2018-01-17] MEDS ORDERED: hydrALAZINE HCL 25 MG TAB PO ONE (00:15)
[2018-01-17 04:00] VITALS: BP 163/72; PULSE 62; RESP 20; TEMP 97.2; O2SAT 95
[2018-01-17] MEDS: cloNIDine HCL 0.1 MG TAB PO SCH (05:35)
[2018-01-17] MEDS ORDERED: hydrALAZINE HCL 25 MG TAB PO SCH ×2 (06:00→09:00)
[2018-01-17] MEDS: SODIUM CHLORIDE 0.9% FLUSH 10 ML FLUSH IV FLUSH SCH (09:00)
[2018-01-17] MEDS ORDERED: SPIRONOLACTONE 25 MG TAB PO SCH (09:00)
[2018-01-17] MEDS: methylPREDNISolone SOD SUCC 125 MG/2 ML VIAL IV PUSH SCH (09:00)
[2018-01-17] MEDS ORDERED: HYDR-3799 PO (09:22)
[2018-01-17] MEDS: ASPIRIN EC 81 MG TABEC PO SCH (09:44)
[2018-01-17] MEDS: DOCUSATE SODIUM 50 MG/SENNA 8.6 MG TAB PO SCH (09:44)
[2018-01-17] MEDS: LISINOPRIL 20 MG TAB PO SCH (09:45)
[2018-01-17] MEDS: MAGNESIUM OXIDE 400 MG TAB PO SCH (09:48)
== END 2018-01-17 11:03 | disposition home or self-care (01) | DRG 312 ==
LOC: NEPD 14:05 → NEDA 18:39 → NEPHCDU 21:43 → OBSVTOIN 01-12 03:43 → N06A 01-12 18:35 → HOCA 01-15 20:49
PROVIDERS: ADMIT Hospitalist; ATTEND Hospitalist
PROC: 30233N1 Transfusion of Nonautologous Red Blood Cells into Peripheral Vein, Percutaneous Approach (ICD-10-PCS; principal; 2018-01-12)
DX: R55 Syncope and collapse (principal); D61.818 Other pancytopenia; I27.21 Secondary pulmonary arterial hypertension; E66.01 Morbid (severe) obesity due to excess calories; I65.29 Occlusion and stenosis of unspecified carotid artery; Z68.34 Body mass index [BMI] 34.0-34.9, adult; I16.0 Hypertensive urgency; I10 Essential (primary) hypertension; J45.909 Unspecified asthma, uncomplicated; G56.03 Carpal tunnel syndrome, bilateral upper limbs; M51.16 Intervertebral disc disorders with radiculopathy, lumbar region; R00.1 Bradycardia, unspecified; Z72.0 Tobacco use; Z86.73 Personal history of transient ischemic attack (TIA), and cerebral infarction without residual deficits
CPT/HCPCS: 36430; 70450; 71045; 72125; 72131; 72170; 78582; 80048; 80053; 80061; 80076; 81001; 82272; 82306; 82550; 82728; 82746; 82948; 83036; 83540; 83550; 83735; 83880; 84100; 84425; 84439; 84443; 84484; 85025; 85610; 85730; 86850; 86900; 86901; 86920; 93005; 93306; 93880; 94150; 94640; 94664; 95819; 96360; 96361; A9540; A9567; G0378; J1650; J2930; J7030; J7050; P9016